=== PATIENT | female | born 1985 | race Asian ===

== ENCOUNTER 2019-12-09 06:34 | Inpatient (IN) | payer OTHER ==
--- OUTSIDE RECORDS SUMMARY | 2019-12-09 06:38 | XMS REPORT | Continuity of Care Document ---
:1985 External Reference #:[id number] Author Name Ultrasounds (transmitted by agent of provider Татьяна Carrera) Address [address] [id number] Care Team Providers Name Role Phone Tacho Gutierrez - Internal Care Team Information Lumber Planer [phone] Medicine Problems Description No Information Available Social History Type Date Description Comments Sex Unknown Cigarette Use Does Not Smoke Cigarettes ETOH Use Denies alcohol use Recreational Drug Use Denies Drug Use Tobacco Use Start: Unknown Patient has never smoked Smoking Status Reviewed: 11/25/19 Patient has never smoked Seat Belt/Car Seat Always uses seat belt Allergies, Adverse Reactions, Alerts Description No Known Drug Allergies Medications Active Medications SIG Qnty Indications Ordering Provider Date + Dha 1 by mouth every 60units Sindhu Barr CNM 05/03/2019 day 27-1&250mg THPK Tylenol 3 tabs every 6 Unknown 325mg Capsules hours as needed pain. mdd 12 tabs History Medications Humulin N Kwikpen inject 4 units 9Syringe Jaxon Marc 10/10/2019 - subcutaneously every JR, DO 11/18/2019 100Unit/ML Supn night BD Pen use with kwikpen. 100units O24.414 Jaxon Marc 10/10/2019 - Needle/Dodie/Ultra JR, DO 11/18/2019 -Fine/32G X 4mm 32G X 4 mm Misc Blood Glucose use in in the morning 1Monitor Daniella 09/26/2019 - Monitoring System before eating, then 2 MD Sabina 11/18/2019 hours after every W/Device Kit meal Blood Glucose Test use for blood glucose 100units Phaelon 09/26/2019 - testing four times MD Sabina 11/18/2019 Strips per day Lancet Device use for blood glucose 100units Phaelon 09/26/2019 - Misc testing four times MD Sabina 11/18/2019 per day Fluconazole 1 tablet then second 2tabs Erianna 06/07/2019 - 150mg tablet 72 hours later KARL Day 09/01/2019 Tablets as needed for continuing symptoms Clotrimazole/Betame apply to affected 15gm Erianna 06/07/2019 - thasone area up to twice per KARL Day 09/01/2019 Dipropionate day for 2-3 days 1-0.05% Cream Medications Administered in Office Medication SIG Qnty Indications Ordering Provider Date PT SCRN Tbco Id as Non User Linda Ceron MD 11/25/2019 Injection PT SCRN Tbco Id as Non User Sindhu Barr CNM 05/03/2019 Injection Immunizations CPT Code Status Date Vaccine Lot # [id number] Given 09/26/2019 Tetnus, Diptheria Toxoids And Acellular Pertussis, DC924 PT > 7Yrs Old [address] Given 06/06/2019 Influenza Virus Vaccine Split Virus Use For [id number] Individual 3Yr Older Vital Signs Date Vital Result Comment 05/03/2019 8:52am BP Systolic 108 mmHg BP Diastolic 64 mmHg Height 63 inches 5'3" Weight 145.00 lb BMI (Body Mass Index) 25.7 kg/m2 Last Menstrual Period 7318337 3 Parity 2 Results Test Acquired Date Facility Test Result H/L Range Note Laboratory test 11/18/2019 [facility] B Strep SEE RESULT 1, 2 [place] [address] Culture BELOW [phone] Screen Laboratory test 09/26/2019 [facility] Glucose 1 HR 203 mg/dL High 70-160 3 [place] [address] Post Prandial [phone] CBC With No 09/26/2019 [facility] White Blood 8.2 Normal 3.5- 10.8 [place] [address] Count 10^3/uL [phone] Red Blood Count 3.75 10^6/uL Normal 3.70-4.87 Hemoglobin 11.2 g/dL Low 12.0-16.0 Hematocrit 33 % Low 35-47 Mean Corpuscular Volume 89 fL Normal 80-97 Mean Corpuscular Hemoglobin 30 pg Normal 27-31 Mean Corpuscular HGB Conc 34 g/dL Normal 31-36 Red Cell Distribution Width 14 % Normal 10-15 Platelet Count 177 10^3/uL Normal 150-450 Mean Platelet Volume 9.6 fL Normal 7.4-10.4 Drug Screen 09/08/2019 [facility] Urine None Detected None [place] [address] Hydrocodone [facility] [phone] Screen Urine Oxycodone Screen None Detected None Detect Urine Fentanyl Screen None Detected None Detect Urine Methadone Screen None Detected None Detect Urine Buprenorphine Screen None Detected None Detect Urine Amphetamine Screen None Detected None Detect Urine Barbiturates Screen None Detected None Detect Urine Benzodiazepine Screen None Detected None Detect Urine Cannabinoids Screen None Detected None Detect Urine Cocaine Screen None Detected None Detect Urine Opiates Screen None Detected None Detect Urine Phencyclidine Screen None Detected None Detect 4 Laboratory test 08/10/2019 [facility] TSH 2.08 mcIU/mL Normal 0.34-5.60 5 [place] [address] [phone] Thyroxine 8.23 g/dL Normal 6.09-12.23 6 1,25 Dihydroxy 08/10/2019 [facility] Calcitriol 147 pg/mL Abnormal 18-78 7 [place] [address] [phone] Afp,Screen 07/04/2019 [facility] [place] [address] Summary risk [phone] Neural Tube Defect Estimate SEE BELOW 8 Collection Date 07/04/19 Maternal Date of 83 Calculated Age At HARVEY 34 years Maternal Weight 145 lbs Insulin Dependent Diabetes No Current Cigarette Smoking Stat non-smoker Patient Race non-Black Number of Fetuses 1 Number of Chorions See Comment 9 Ivf N o Prev Preg w/Neural Tube Defect N o Patient/Father of Baby Has NTD N o Initial Or Repeat Testing Initial testing HARVEY by U/S Scan 12/16/19 Physician Phone Number [phone] GA On Collection by U/S SEE BELOW wk,d 10 GA Used In Risk Estimate Scan estimate Afp 33.1 ng/mL Afp MoM 0.90 MoM <2.50 Interpretation See Comment 11 Additional Comments See Comment 12 Recommended Follow Up None. General Test Information See Comment 13 Laboratory test 07/04/2019 [facility] T4 Free 0.82 ng/dL Normal 0.61-1.12 14 [place] [address] [phone] TSH 2.88 mcIU/mL Normal 0.34-5.60 15 Urine Culture And 06/06/2019 [facility] Urine Culture SEE RESULT 16 [place] [address] BELOW [phone] Laboratory test 06/06/2019 [facility] Gardnerella/Ye SEE RESULT [address] [place] [address] ast: Vaginal BELOW [phone] Dna GC/Chlamydia Dna 06/06/2019 [facility] Chlamydia [place] [address] trachomatis [phone] Zohra Neisseria gonorrhoeae (GC) Zohra Negative Negative Laboratory test 06/06/2019 [facility] Cytology SEE RESULT 18 [place] [address] BELOW [phone] Laboratory test 06/06/2019 [facility] TSH 2.70 mcIU/mL Normal 0.34-5 19 [place] [address] .60 [phone] T4 Free 0.73 ng/dL Normal 0.61-1.12 20 Parvovirus B19 06/06/2019 [facility] Parvovirus Negative Negative Igg [place] [address] (B19) IgG [phone] Antibody Parvovirus (B19) IgM Antibody Negative Negative Parvovirus Interpretation See Comment 21 HIV 1&2 p24 06/06/2019 [facility] HIV 4th Non[place] [address] Generation [phone] Lead 06/06/2019 [facility] Lead,Venous, B < 1.0 g/dL 0.0- 4.9 22 [place] [address] [phone] Venous/Capillary Venous Submitting Laboratory Phone [phone] Type And Screen 06/06/2019 [facility] Patient [place] [address] [phone] Antibody Screen NEGATIVE CBC With No 06/06/2019 [facility] White Blood 9.7 10^3/uL Normal 3.5-10.8 [place] [address] Count [phone] Red Blood Count 4.00 10^6/uL Normal 3.70-4.87 Hemoglobin 11.8 g/dL Low 12.0-16.0 Hematocrit 36 % Normal 35-47 Mean Corpuscular Volume 90 fL Normal 80-97 Mean Corpuscular Hemoglobin 30 pg Normal 27-31 Mean Corpuscular HGB Conc 33 g/dL Normal 31-36 Red Cell Distribution Width 14 % Normal 10-15 Platelet Count 189 10^3/uL Normal 150-450 Mean Platelet Volume 9.9 fL Normal 7.4-10.4 PNL No 06/06/2019 [facility] Rubella Screen Immune Immune 24 [place] [address] [phone] Hemoglobin A1c 5.4 % Normal 4.0-5.6 25 Hepatitis B Surface Ag Nonreactive Nonreactive 26 Syphillis Igg W/Reflex RPR Negative Negative 27 Chromosomes 13, 18, 06/06/2019 [place] Chromosome 13 Negative Normal 28 21 + Sex Chromosome Aneuploidy Chromosome 18 Aneuploidy Negative Normal 29 Chromosome 21 Aneuploidy Negative Normal 30 Sex Chromosome Analysis Female Normal 31 PDF Report SEE IMAGE 1 [id number] SEE RESULT BELOW Name: CAITLYN MACHADO : [address]: Daniella Muhammad MD Acct: [id number] Unit: [id number] AGE: 34 Location: [facility] Re11/18/19 SEX: F Status: REG REF SPEC: [id number] CLAUDIO: 11/18/19-[address]: Daniella Muhammad MD REQ: [id number] RECD: 11/18/19160 STATUS: RES _ SOURCE: SHELBIE/INO/JUSTYN SPDESC: ORDERED: Storm Russell COMMENTS: [id number] QUERIES: Is patient penicillin allergic and/or sensitivities needed? N Procedure Result Reported Site Group B Strep Culture Screen Preliminary 11/19/19- 1048 ML Group B Strep Screen Positive Organism 1 STREP GROUP B Susceptibility testing of penicillins and other B-lactams approved by FDA for treatment of Streptococcus pyogenes (Group A Strep) and Streptococcus agalactiae (Group B Strep) is not necessary for clinical purposes and need not be done routinely, since as with vancomycin, resistant strains have not been recognized. (CLSI R156-F71;p.66) Positive isolates will be saved for one week. Please call the Microbiology Laboratory if further susceptibility testing is needed. * ML - Main Lab . END OF REPORT DEPARTMENT OF PATHOLOGY, [address] [place] [address] Ervin Leon M.D. Director [facility] # [id number] 3 [id number] 4 The specimen was tested at the listed cutoffs: Drug Class Test level (ng/mL) Hydrocodone 300 Oxycodone 100 Fentanyl 1 Methadone 150 Buprenorphine 5 Amphetamines 500 Barbiturates 200 Benzodiazepines 200 Cocaine 150 Cannabinoids 50 Opiates 300 PCP 25 Specimen was received without chain of custody. Results should be used for medical purposes only. 5 [id number] 6 [id number] 7 ADDITIONAL INFORMATION This test was developed and its performance characteristics determined by [facility] in a manner consistent with CLIA requirements. This test has not been cleared or approved by the U.S. Food and Drug Administration. Test Performed by: [facility] - [facility] [address] [place] [address] Housekeeping/Laundry: Ruddy Mejias M.D. Ph.D.; CLIA# [id number] RESULT: 9 RESULT: Not provided by client 10 RESULT: 16,3 11 RESULT: Screen negative for neural tube defects. 12 RESULT: Reviewed by Olive Hernandez,Ph.D. 13 This screening provides an estimation of risk, not a diagnosis. Incorrect or incomplete information may significantly alter results. Results may be unreliable in twin pregnancies with a demise. Results are not available for pregnancies with triplets and higher-order multiples. A positive result occurs when the AFP MoM equals or exceeds 2.5. Screen results and family history influence individual risk. If there is a family history of a neural tube defect, chromosome abnormality, or other inherited condition, consider the option of a genetic consultation. For further information, please contact the maternal screening laboratory at . ADDITIONAL INFORMATION This test was developed and its performance characteristics determined by [facility] in a manner consistent with CLIA requirements. This test has not been cleared or approved by the U.S. Food and Drug Administration. Test Performed by: [facility] - [address] [address] Housekeeping/Laundry: Ruddy Mejias M.D. Ph.D.; CLIA# [id number] 15 [id number] 16 SEE RESULT BELOW Name: MAGDALENAPIPE RUSSELLM : [address]: Arnold Day CNM Acct: [id number] Unit: [id number] AGE: 33 Location: [facility] Re06/06/19 SEX: F Status: REG REF SPEC: [id number] CLAUDIO: 06/06/[address] [facility] [address]: Arnold Day CNM REQ: [id number] RECD: 06/06/192 STATUS: COMP _ SOURCE: URINE SPDESC: ORDERED: Urine Culture COMMENTS: [id number] Urine Source: Random Procedure Result Reported Site Urine Culture Final 06/07/19- 1205 ML No growth of clinically significant organisms * ML - Main Lab . END OF REPORT DEPARTMENT OF PATHOLOGY, [address] [place] [address] Ervin Leon M.D. Director [facility] # [id number] 17 SEE RESULT BELOW Name: CAITLYN MACHADO : [address]: Arnold Day [facility] Acct: [id number] Unit: [id number] AGE: 33 Location: [facility] Re06/06/19 SEX: F Status: REG REF SPEC: [id number] CLAUDIO: 06/06/[address]: Arnold Day [facility] REQ: [id number] RECD: 06/06/19 STATUS: COMP _ SOURCE: VAGINAL SPDESC: ORDERED: Sharon,Yeast DNA COMMENTS: [id number] Would you like to order Trichomonas Vaginalis testing? No Procedure Result Reported Site Gardnerella/Yeast: Vaginal DNA Final 06/07/19- 1236 ML Organism 1 POSITIVE LILIAN Organism 2 Negative Gardnerella The presence of G. vaginalis, although suggestive, is not diagnostic for bacterial vaginosis. Results should be interpreted in conjuction with other clinical and laboratory data available. Women with vaginal discharge should be evaluated for risk factors of cervicitis and pelvic inflammatory disease, toxic shock syndrome (S.aureus), and if present, evaluated for organisms not included in this assay such as N. gonorrhoeae, C. trachomatis, Mobiluncus, Mycoplasma and/or Prevotella. Mixed infections may occur. The performance of this test on patient specimens collected during or immediately after antimicrobial therapy is unknown. The presence or absence of Lilian species, or G. vaginalis cannot be used as a test for therapeutic success or failure. * ML - Main Lab . END OF REPORT DEPARTMENT OF PATHOLOGY, [address] [place] [address] Ervin Leon M.D. Director [facility] # [id number] 18 SEE RESULT BELOW Name: MAGDALENAPIPE RUSSELLM : [address]: Arnold Day CNM Acct: [id number] Unit: [id number] AGE: 33 Location: [facility] Re06/06/19 SEX: F Status: REG REF SPEC: [id number] CLAUDIO: 06/06/[address] [facility] [address]: Arnold Day CNM REQ: [id number] RECD: 06/06/19 STATUS: SOUT _ ORDERED: TP IMAGE ANALYS, HPV/Thin Prep COMMENTS: [id number] FINAL DIAGNOSIS Negative for Intraepithelial lesion or Malignancy HPV RESULTS Date Time Test Result Flag (u) Normal Range 06/06/19 0930 HPV ZOHRA Negative Negative The high-risk HPV types detected by the assay include: 16, 18, 31, 33, 35, 39, 45, 51, 52, 56, 58, 59, 66, and 68. SPECIMEN(S) RECEIVED A. Ectocervical/Endocervical CYTOLOGY ADEQUACY Specimen Adequacy: Satisfactory of evaluation Transformation zone component identified CYTOLOGY PATIENT INFORMATION Patient Information: HPV: High risk HPV RNA testing regardless of pap results. Actual Specimen Date: 06/06/19 Last Menstrual Date: 02/19/19 Spec Date if unknown: unknown ?: Y Post Menopausal?: N Hysterectomy?: N CONTINUED ON NEXT PAGE DEPARTMENT OF PATHOLOGY, [address] [place] [address] Ervin Leon M.D. Director [facility] # [id number] Previous Abnormal Pap Smears?:N Signed by and Reported on: ADRIANNA Cortes (ASCP) 4117 This Pap test was evaluated with the assistance of the ditlop Test Imaging System. Due to cytologic findings at the quality control clerk microscope, comprehensive manual rescreening by a Area Attendant may be required. The Pap Smear is a screening test designed to aid in the detection of premalignant and malignant conditions of the uterine cervix. It is not a diagnostic procedure and should not be used as the sole means of detecting cervical cancer. Both false- positive and false- negative reports do occur. Depending on your risk status, a Pap smear should be obtained and evaluated every 1-3 years. END OF REPORT DEPARTMENT OF PATHOLOGY, [address] [place] [address] Ervin Leon M.D. Director [place] # [id number] 19 [id number] 20 [id number] 21 No antibody to Parvovirus B19 detected. Acute infection cannot be ruled out as antibody levels may be below the limit of detection. If clinically indicated, a second serum should be submitted in 14-21 days. ADDITIONAL INFORMATION This test has been modified from the panel machine setter's instructions. Its performance characteristics were determined by [facility] in a manner consistent with CLIA requirements. This test has not been cleared or approved by the U.S. Food and Drug Administration. Test Performed by: [facility] - [address] [address] Housekeeping/Laundry: Ruddy Mejias M.D. Ph.D.; CLIA# [id number] 22 ADDITIONAL INFORMATION Testing performed by Inductively Coupled Plasma-Mass Spectrometry (ICP-MS). This test was developed and its performance characteristics determined by [facility] in a manner consistent with CLIA requirements. This test has not been cleared or approved by the U.S. Food and Drug Administration. 23 Test Performed by: [facility] [address] [place] [address] Housekeeping/Laundry: Ruddy Mejias M.D. Ph.D.; CLIA# [id number] 24 [id number] 25 Therapeutic target for the treatment of diabetes mellitus patients is <7% HBA1C, and in selective patients <6.0%. Please refer to [place] [employer] diabetic care guidelines for further information. 26 [id number] 27 [id number] 28 No aneuploidy detected. 29 No aneuploidy detected. 30 No aneuploidy detected. 31 Female: No aneuploidy detected. Procedures Date Code Description Status 11/18/2019 72995 Biophysical Profile Without Non Stress Test Completed 11/18/2019 40016 Echography Uterus Follow-Up Or Repeat Completed 10/18/2019 30145 Biophysical Profile Without Non Stress Test Completed 10/18/2019 99422 Echography Uterus Follow-Up Or Repeat Completed 08/10/2019 73520 Echography Uterus Complete Completed 06/06/2019 55361 OB Ultrasound First Trimester Completed Medical Devices Description No Information Available Encounters Type Date Location Provider Dx Diagnosis Office Visit 11/25/2019 [facility] Linda Ceron O24.410 Gestational diabetes 8:30a MD mellitus in , diet controlled Z01.818 Encounter for other preprocedural examination Assessments Date Code Description Provider 11/25/2019 O24.410 Gestational diabetes mellitus in Linda Ceron MD , diet controlled 11/25/2019 Z01.818 Encounter for other preprocedural Linda Ceron MD examination 11/18/2019 O24.410 Gestational diabetes mellitus in Daniella Muhammad MD , diet controlled 11/18/2019 O99.810 Abnormal glucose complicating Daniella Muhammad MD 11/18/2019 O24.410 Gestational diabetes mellitus in Ultrasounds , diet controlled 11/07/2019 O34.211 Maternal care for low transverse scar Jaxon Marc JR, DO from previous delivery 10/25/2019 O24.410 Gestational diabetes mellitus in Sylvia Amin MD , diet controlled 10/18/2019 O99.810 Abnormal glucose complicating Dionicio Amaral M.D. 10/18/2019 O24.410 Gestational diabetes mellitus in Dionicio Amaral M.D. , diet controlled 10/18/2019 O99.810 Abnormal glucose complicating Ultrasounds 10/10/2019 O24.414 Gestational diabetes mellitus in Jaxon Marc , DO , insulin controlled 09/26/2019 Z36.9 Encounter for screening, Linda Ceron MD unspecified 09/26/2019 Z36.9 Encounter for screening, Laboratory unspecified 09/26/2019 Z23 Encounter for immunization Daniella Muhammad MD 09/26/2019 O34.211 Maternal care for low transverse scar Daniella Muhammad MD from previous delivery 09/08/2019 O34.211 Maternal care for low transverse scar Daniella Muhammad MD from previous delivery 08/10/2019 Z36.3 Encounter for screening for Dionicio Amaral M.D. malformations 08/10/2019 Z34.82 Encounter for supervision of other normal Nathalie Terrazas CNM , second trimester 08/10/2019 Z36.3 Encounter for screening for Ultrasounds malformations 07/04/2019 Z36.9 Encounter for screening, Linda Ceron MD unspecified 07/04/2019 Z36.9 Encounter for screening, Laboratory unspecified 07/04/2019 Z34.82 Encounter for supervision of other normal Sindhu Barr CNM , second trimester 06/06/2019 O26.91 related conditions, Linda Ceron MD unspecified, first trimester 06/06/2019 Z23 Encounter for immunization Arnold Day CNM 06/06/2019 Z36.9 Encounter for screening, Arnold Day CNM unspecified 06/06/2019 O26.91 related conditions, Ultrasounds unspecified, first trimester Plan of Treatment Future Appointment(s):01/11/2020 1:30 pm - Linda Ceron MD at [facility]12/16/2019 3:15 pm - Tino Lema CNM at [facility]12/09/2019 7:45 am - [place] C[place] [facility] [place]011/25/2019 - Linda Ceron MDO24.410 Gestational diabetes mellitus in , diet controlledComments:Pt with reasonable control of glucose levels. PT to continue with A!DM management . Pt to have 8 week GTT done at pp visit.Z01.818 Encounter for other preprocedural examinationComments:Pt is aware of risk benefits of repeat section and bilateral tubal ligation Pt accepts riskto include but not limited to infection bleeding damage to internal organs pain scarring need for further surgery, failure of tubal ligation with risk of subsequent ectopic . Consent form personally signed and reviewed together. All questions answered. Functional Status Description No Information Available Mental Status Description No Information Available Referrals Refer to Dr Reason for Referral Status Appt Date [facility] [place] [address] [phone]
--- OUTSIDE RECORDS SUMMARY | 2019-12-09 06:38 | XMS REPORT | Continuity of Care Document ---
:1985 External Reference #:[id number] Author Name Sylvia Amin MD (transmitted by agent of provider Linda Alejandre) Address [address] [place] [address] Care Team Providers Name Role Phone Tacho Gutierrez - Internal Care Team Information Tank Farm Attendant [phone] Medicine Problems Description No Information Available Social [...] hours as needed pain. mdd 12 tabs Cetirizine HCL Unknown Allergy Childrens 5mg/5ML Solution History Medications Humulin N Kwikpen inject 4 units 9Syringe Jaxon Marc 10/10/2019 - subcutaneously every JR, DO 11/18/2019 100Unit/ML Supn night BD Pen use with kwikpen. 100units O24.414 Jaxon Marc 10/10/2019 - Needle/Dodie/Ultra JR, DO 11/18/2019 -Fine/32G X 4mm 32G X 4 mm Misc Blood Glucose use in in the morning 1Monitor Phaelon 09/26/2019 - Monitoring System before eating, then [...] CPT Code Status Date Vaccine Lot # [id number] Given 09/26/2019 Tetnus, Diptheria Toxoids And Acellular Pertussis, DC924 PT > 7Yrs Old [address] Given 06/06/2019 Influenza Virus Vaccine Split Virus Use For [id number] Individual 3Yr Older Vital Signs Date Vital Result Comment 05/03/2019 8:52am BP Systolic 108 mmHg BP Diastolic 64 mmHg Height 63 inches 5'3" Weight 145.00 lb BMI (Body Mass Index) 25.7 kg/m2 Last Menstrual Period 1227676 3 Parity 2 Results Test Acquired Date Facility Test Result H/L Range Note Laboratory test 11/18/2019 [facility] B Strep SEE RESULT 1, 2 [place] [address] Culture BELOW [phone] Screen Laboratory test 09/26/2019 [facility] Glucose 1 HR 203 mg/dL High 70-160 3 [place] [address] Post Prandial [phone] CBC With No 09/26/2019 [facility] White Blood 8.2 Normal 3.5- 10.8 [place] [address] Count 10^3/uL [phone] Red Blood Count 3.75 10^6/uL Normal 3.70-4.87 Hemoglobin 11.2 g/dL Low 12.0-16.0 Hematocrit 33 % Low 35-47 Mean Corpuscular Volume 89 fL Normal 80-97 Mean Corpuscular Hemoglobin 30 pg Normal 27-31 Mean Corpuscular HGB Conc 34 g/dL Normal 31-36 Red Cell Distribution Width 14 % Normal 10-15 Platelet Count 177 10^3/uL Normal 150-450 Mean Platelet Volume 9.6 fL Normal 7.4-10.4 Drug Screen 09/08/2019 [facility] Urine None Detected None [place] [address] Hydrocodone [facility] [phone] Screen Urine Oxycodone Screen None Detected None [...] Detected None Detect 4 Laboratory test 08/10/2019 [facility] TSH 2.08 mcIU/mL Normal 0.34-5.[address] [place] [address] [phone] Thyroxine 8.23 g/dL Normal 6.09-12.23 6 1,25 Dihydroxy 08/10/2019 [facility] Calcitriol 147 pg/mL Abnormal 18-[address] [place] [address] [phone] Afp,Screen 07/04/2019 [facility] [place] [address] Summary risk [phone] Neural Tube Defect Estimate SEE BELOW 8 [...] by U/S Scan 12/16/19 Physician Phone Number [phone] GA On Collection by U/S SEE BELOW wk,d 10 GA Used In Risk Estimate Scan estimate Afp 33.1 ng/mL Afp MoM 0.90 MoM <2.50 Interpretation See Comment 11 Additional Comments See Comment 12 Recommended Follow Up None. General Test Information See Comment 13 Laboratory test 07/04/2019 [facility] T4 Free 0.82 ng/dL Normal 0.61-1.12 14 [place] [address] [phone] TSH 2.88 mcIU/mL Normal 0.34-5.60 15 Urine Culture And 06/06/2019 [facility] Urine Culture SEE RESULT 16 [place] [address] BELOW [phone] Laboratory test 06/06/2019 [facility] Gardnerella/Ye SEE RESULT [address] [place] [address] ast: Vaginal BELOW [phone] Dna GC/Chlamydia Dna 06/06/2019 [facility] Chlamydia Negative [place] [address] trachomatis [phone] Zohra Neisseria gonorrhoeae (GC) Zohra Negative Negative Laboratory test 06/06/2019 [facility] Cytology SEE RESULT 18 [place] [address] BELOW [phone] Laboratory test 06/06/2019 [facility] TSH 2.70 mcIU/mL Normal 0.34-5 19 [place] [address] .60 [phone] T4 Free 0.73 ng/dL Normal 0.61-1.12 20 Parvovirus B19 06/06/2019 [facility] Parvovirus Negative Negative [place] [address] (B19) IgG [phone] Antibody Parvovirus (B19) IgM Antibody Negative Negative Parvovirus Interpretation See Comment 21 HIV 1&2 p24 06/06/2019 [facility] HIV 4th Nonreactive [place] [address] Generation [phone] Lead 06/06/2019 [facility] Lead,Venous, B < 1.0 g/dL 0.0- 4.9 22 [place] [address] [phone] Venous/Capillary Venous Submitting Laboratory Phone [phone] Type And Screen 06/06/2019 [facility] Patient Blood [place] [address] [phone] Antibody Screen NEGATIVE CBC With No 06/06/2019 [facility] White Blood 9.7 10^3/uL Normal 3.5-10.8 [place] [address] Count [phone] Red Blood Count 4.00 10^6/uL Normal 3.70-4.87 Hemoglobin 11.8 g/dL Low 12.0-16.0 Hematocrit 36 % Normal 35-47 Mean Corpuscular Volume 90 fL Normal 80-97 Mean Corpuscular Hemoglobin 30 pg Normal 27-31 Mean Corpuscular HGB Conc 33 g/dL Normal 31-36 Red Cell Distribution Width 14 % Normal 10-15 Platelet Count 189 10^3/uL Normal 150-450 Mean Platelet Volume 9.9 fL Normal 7.4-10.4 PNL No 06/06/2019 [facility] Rubella Screen Immune Immune 24 [place] [address] [phone] Hemoglobin A1c 5.4 % Normal 4.0-5.6 25 Hepatitis B Surface Ag Nonreactive Nonreactive 26 Syphillis Igg W/Reflex RPR Negative Negative 27 Chromosomes 13, 18, 06/06/2019 Myla Chromosome 13 Negative Normal 28 21 + Sex Chromosome Aneuploidy Chromosome 18 Aneuploidy Negative Normal 29 Chromosome 21 Aneuploidy Negative Normal 30 Sex Chromosome Analysis Female Normal 31 PDF Report SEE IMAGE 1 [id number] 2 SEE RESULT BELOW Name: CAITLYN MACHADO : [address]: Daniella Muhammad MD Acct: [id number] Unit: [id number] AGE: 34 Location: [facility] Re11/18/19 SEX: F Status: REG REF SPEC: [id number] CLAUDIO: 11/18/19-1137 [facility] DR: Daniella Muhammad MD REQ: [id number] RECD: 11/18/19160 STATUS: RES _ SOURCE: SHELBIE/VAG/RE SPDESC: ORDERED: Storm Russell COMMENTS: [id number] QUERIES: Is patient penicillin allergic and/or sensitivities [...] resistant strains have not been recognized. (CLSI K356-K39;p.66) Positive isolates will be saved for one week. Please call the Microbiology Laboratory if further susceptibility testing is needed. * ML - Main Lab . END OF REPORT DEPARTMENT OF PATHOLOGY, [address] [place] [address] Ervin Leon M.D. Director SUE # [id number] 3 [id number] 4 The specimen was tested at the listed cutoffs: Drug Class Test level (ng/mL) Hydrocodone 300 Oxycodone 100 Fentanyl 1 Methadone 150 Buprenorphine 5 Amphetamines 500 Barbiturates 200 Benzodiazepines 200 Cocaine 150 Cannabinoids 50 Opiates 300 PCP 25 Specimen was received without chain of custody. Results should be used for medical purposes only. 5 [id number] 6 [id number] 7 ADDITIONAL INFORMATION This test was developed and its performance characteristics determined by [facility] in a manner consistent with CLIA requirements. This test has not been cleared or approved by the U.S. Food and Drug Administration. Test Performed by: [facility] [address] [place] [address] Armament Installer: Ruddy Mejias M.D. Ph.D.; CLIA# [id number] RESULT: 9 RESULT: Not provided by [...] developed and its performance characteristics determined by [facility] in a manner consistent with CLIA requirements. This test has not been cleared or approved by the U.S. Food and Drug Administration. Test Performed by: [facility] [place] [address] Armament Installer: Ruddy Mejias M.D. Ph.D.; CLIA# [id number] 14 [id number] 15 [id number] 16 SEE RESULT BELOW Name: CAITLYN MACAHDO : [address]: Arnold Day [facility] Acct: [id number] Unit: [id number] AGE: 33 Location: [facility] Re06/06/19 SEX: F Status: REG REF SPEC: [id number] CLAUDIO: 06/06/19 [facility] DR: Arnold Day [facility] REQ: [id number] RECD: 06/06/19 STATUS: COMP _ SOURCE: URINE SPDESC: ORDERED: Urine Culture COMMENTS: [id number] Urine Source: Random Procedure Result Reported Site Urine Culture Final 06/07/19- 1205 ML No growth of clinically significant organisms * ML - Main Lab . END OF REPORT DEPARTMENT OF PATHOLOGY, [address] [place] [address] Ervin Leon M.D. Director MADISYN # [id number] 17 SEE RESULT BELOW Name: CAITLYN MACHADO : [address]: Arnold Day [facility] Acct: [id number] Unit: [id number] AGE: 33 Location: [facility] Re06/06/19 SEX: F Status: REG REF SPEC: [id number] CLAUDIO: 06/06/[address]: Arnold MENDOZA REQ: [id number] RECD: 06/06/19 STATUS: COMP _ SOURCE: VAGINAL SPDESC: ORDERED: Sharon,Yeast DNA COMMENTS: [id number] Would you like to order Trichomonas Vaginalis [...] . END OF REPORT DEPARTMENT OF PATHOLOGY, [address] [place] [address] Ervin Leon M.D. Director [facility] # [id number] 18 SEE RESULT BELOW Name: CAITLYN MACHADO : [address]: Arnold Day CNM Acct: [id number] Unit: [id number] AGE: 33 Location: [facility] Re06/06/19 SEX: F Status: REG REF SPEC: [id number] CLAUDIO: 06/06/19 [facility] DR: Arnold Day CNM REQ: [id number] RECD: 06/06/19 STATUS: SOUT _ ORDERED: TP IMAGE ANALYS, HPV/Thin Prep COMMENTS: [id number] FINAL DIAGNOSIS Negative for Intraepithelial lesion or [...] CONTINUED ON NEXT PAGE DEPARTMENT OF PATHOLOGY, [address] [place] [address] Ervin Leon M.D. Director [facility] # [id number] Previous Abnormal Pap Smears?:N Signed by and Reported on: ADRIANNA Cortes (ASCP) 0080 This Pap test was evaluated with the assistance of the [employer].comPrep Test Imaging System. Due to cytologic findings at the laboratory apparatus glass grinder microscope, comprehensive manual rescreening by a Corporate Webmaster may be required. The Pap Smear is [...] years. END OF REPORT DEPARTMENT OF PATHOLOGY, [address] [place] [address] Ervin Leon M.D. Director [facility] # [id number] 19 [id number] 20 [id number] 21 No antibody to Parvovirus B19 detected. Acute infection cannot be ruled out as antibody levels may be below the limit of detection. If clinically indicated, a second serum should be submitted in 14-21 days. ADDITIONAL INFORMATION This test has been modified from the retail reset merchandiser's instructions. Its performance characteristics were determined by [facility] in a manner consistent with CLIA requirements. This test has not been cleared or approved by the U.S. Food and Drug Administration. Test Performed by: [facility] [employer] [facility] [address] [place] [address] Armament Installer: Ruddy Mejias M.D. Ph.D.; CLIA# [id number] 22 ADDITIONAL INFORMATION Testing performed by Inductively Coupled Plasma-Mass Spectrometry (ICP-MS). This test was developed and its performance characteristics determined by [facility] in a manner consistent with CLIA requirements. This test has not been cleared or approved by the U.S. Food and Drug Administration. 23 Test Performed by: [facility] [address], [place] [address] Armament Installer: Ruddy Mejias M.D. Ph.D.; CLIA# [id number] 24 [id number] 25 Therapeutic target for the treatment of diabetes mellitus patients is <7% HBA1C, and in selective patients <6.0%. Please refer to [place] [employer] diabetic care guidelines for further information. 26 [id number] 27 [id number] 28 No aneuploidy detected. 29 No aneuploidy detected. 30 No aneuploidy detected. 31 Female: No aneuploidy detected. Procedures Date Code Description Status 11/18/2019 85616 Biophysical Profile Without Non Stress Test Completed 11/18/2019 83103 Echography Uterus Follow-Up Or Repeat Completed 10/18/2019 90650 Biophysical Profile Without Non Stress Test Completed 10/18/2019 20437 Echography Uterus Follow-Up Or Repeat Completed 08/10/2019 09681 Echography Uterus Complete Completed 06/06/2019 23507 OB Ultrasound First Trimester Completed Medical Devices Description No Information Available Encounters Type Date Location Provider Dx Diagnosis Office Visit 11/25/2019 [facility] Linda Ceron, O24.410 Gestational diabetes 8:30a mellitus in , diet controlled Z01.818 Encounter for other preprocedural examination Assessments Date Code Description Provider 12/02/2019 O24.410 Gestational diabetes mellitus in Sylvia Amin MD , diet controlled 11/25/2019 O24.410 Gestational diabetes mellitus in Linda [...] O24.414 Gestational diabetes mellitus in Jaxon Marc JR, DO , insulin controlled 09/26/2019 Z36.9 Encounter [...] Z34.82 Encounter for supervision of other normal KELLY Resendiz , second trimester 08/10/2019 Z36.3 Encounter for [...] 1:30 pm - Linda Ceron MD at [facility]12/16/2019 3:15 pm - Tino Lema CNM at [facility]12/09/2019 7:45 am - Linda Ceron MD at [place] 4439011/25/2019 - Linda Ceron MDO24.410 Gestational diabetes mellitus [...] Description No Information Available Referrals Refer to Reason for Referral Status Appt Date [facility] GDM Closed [facility] [address] [facility] [place] [address] [phone]
--- OUTSIDE RECORDS SUMMARY | 2019-12-09 06:38 | XMS REPORT | Continuity of Care Document ---
:1985 External Reference #:[id number] Author Name Daniella Muhammad MD (transmitted by agent of provider Linda Alejandre) Address [address] [place] [address] Care Team Providers Name Role Phone Tacho Gutierrez - Internal Care Team Information Cable Rigger [phone] Medicine Problems Description No Information Available Social [...] every 60units Sindhu Barr CNM 05/03/2019 day -1&250mg THPK Tylenol 3 tabs every 6 Unknown [...] Glucose Test use for blood glucose 100units Daniella 09/26/2019 - testing four times MD Sabina [...] CPT Code Status Date Vaccine Lot # [id number] Given 09/26/2019 Tetnus, Diptheria Toxoids And Acellular Pertussis, DC924 PT > 7Yrs Old [address] Given 06/06/2019 Influenza Virus Vaccine Split Virus Use For 905511 Individual 3Yr Older Vital Signs Date Vital Result Comment 05/03/2019 8:52am BP Systolic 108 mmHg BP Diastolic 64 mmHg Height 63 inches 5'3" Weight 145.00 lb BMI (Body Mass Index) 25.7 kg/m2 Last Menstrual Period 4438537 3 Parity 2 Results Test Acquired Date Facility Test Result H/L Range Note Laboratory test 11/18/2019 [facility] B Strep SEE RESULT 1, 2 [place] [address] Culture BELOW [phone] Screen Laboratory test 09/26/2019 [facility] Glucose 1 HR 203 mg/dL High 70-160 3 [place] [address] Post Prandial [phone] CBC With No 09/26/2019 [facility] White Blood 8.2 Normal 3.5- 10.8 [place] [address] Count 10^3/uL [phone] Red Blood Count 3.75 10^6/uL Normal 3.70-4.87 Hemoglobin 11.2 g/dL Low 12.0-16.0 Hematocrit 33 % Low 35-47 Mean Corpuscular Volume 89 fL Normal 80-97 Mean Corpuscular Hemoglobin 30 pg Normal 27-31 Mean Corpuscular HGB Conc 34 g/dL Normal 31-36 Red Cell Distribution Width 14 % Normal 10-15 Platelet Count 177 10^3/uL Normal 150-450 Mean Platelet Volume 9.6 fL Normal 7.4-10.4 Drug Screen 09/08/2019 [facility] Urine None Detected None [place] [address] Hydro[facility] Clinic [phone] Screen Urine Oxycodone Screen None Detected None [...] Detected None Detect 4 Laboratory test 08/10/2019 [facility] TSH 2.08 mcIU/mL Normal 0.34-5.60 5 [place] [address] [phone] Thyroxine 8.23 g/dL Normal 6.09-12.23 6 1,25 Dihydroxy 08/10/2019 [facility] Calcitriol 147 pg/mL Abnormal 18-78 7 [place] [address] [phone] Afp,Screen 07/04/2019 [facility] [place] [address] Summary risk [phone] Neural Tube Defect Estimate SEE BELOW 8 [...] by U/S Scan 12/16/19 Physician Phone Number [phone] GA On Collection by U/S SEE BELOW wk,d 10 GA Used In Risk Estimate Scan estimate Afp 33.1 ng/mL Afp MoM 0.90 MoM <2.50 Interpretation See Comment 11 Additional Comments See Comment 12 Recommended Follow Up None. General Test Information See Comment 13 Laboratory test 07/04/2019 [facility] T4 Free 0.82 ng/dL Normal 0.61-1.12 [address] [place] [address] [phone] TSH 2.88 mcIU/mL Normal 0.34-5.60 15 Urine Culture And 06/06/2019 [facility] Urine Culture SEE RESULT [address] [place] [address] BELOW [phone] Laboratory test 06/06/2019 [facility] Gardnerella/Ye SEE RESULT [address] [place] [address] ast: Vaginal BELOW [phone] Dna GC/Chlamydia Dna 06/06/2019 [facility] Chlamydia [place] [address] trachomatis [phone] Zohra Neisseria gonorrhoeae (GC) Zohra Negative Negative Laboratory test 06/06/2019 [facility] Cytology SEE RESULT [address] [place] [address] BELOW [phone] Laboratory test 06/06/2019 [facility] TSH 2.70 mcIU/mL Normal 0.34-5 19 [place] [address] .60 [phone] T4 Free 0.73 ng/dL Normal 0.61-1.12 20 Parvovirus B19 06/06/2019 [facility] Parvovirus Negative Negative [place] [address] (B19) IgG [phone] Antibody Parvovirus (B19) IgM Antibody Negative Negative Parvovirus Interpretation See Comment 21 HIV 1&2 p24 06/06/2019 [facility] HIV 4th [place] [address] Generation [phone] Lead 06/06/2019 [facility] Lead,Venous, B < 1.0 g/dL 0.0- 4.9 [address] [place] [address] [phone] Venous/Capillary Venous Submitting Laboratory Phone [phone] Type And Screen 06/06/2019 [facility] Patient [place] [address] [phone] Antibody Screen NEGATIVE CBC With No 06/06/2019 [facility] White Blood 9.7 10^3/uL Normal 3.5-10.8 [place] [address] Count [phone] Red Blood Count 4.00 10^6/uL Normal 3.70-4.87 Hemoglobin 11.8 g/dL Low 12.0-16.0 Hematocrit 36 % Normal 35-47 Mean Corpuscular Volume 90 fL Normal 80-97 Mean Corpuscular Hemoglobin 30 pg Normal 27-31 Mean Corpuscular HGB Conc 33 g/dL Normal 31-36 Red Cell Distribution Width 14 % Normal 10-15 Platelet Count 189 10^3/uL Normal 150-450 Mean Platelet Volume 9.9 fL Normal 7.4-10.4 PNL No 06/06/2019 [facility] Rubella Screen Immune Immune 24 [place] [address] [phone] Hemoglobin A1c 5.4 % Normal 4.0-5.6 25 Hepatitis B Surface Ag Nonreactive Nonreactive 26 Syphillis Igg W/Reflex RPR Negative Negative 27 Chromosomes 13, 18, 06/06/2019 [facility] Chromosome 13 Negative Normal 28 21 + Sex Chromosome Aneuploidy Chromosome 18 Aneuploidy Negative Normal 29 Chromosome 21 Aneuploidy Negative Normal 30 Sex Chromosome Analysis Female Normal 31 PDF Report SEE IMAGE 1 [id number] 2 SEE RESULT BELOW Name: CAITLYN MACHADO : [address]: Daniella Muhammad MD Acct: [id number] Unit: [id number] AGE: 34 Location: [facility] Re11/18/19 SEX: F Status: REG REF SPEC: [id number] CLAUDIO: 11/18/19-[address] [facility] [address]: Daniella Muhammad MD REQ: [id number] RECD: 11/18/19160 STATUS: RES _ SOURCE: SHELBIE/INO/RE SPDESC: ORDERED: Storm Russell COMMENTS: [id number] QUERIES: Is patient penicillin allergic and/or sensitivities [...] resistant strains have not been recognized. (CLSI P927-U96;p.66) Positive isolates will be saved for one week. Please call the Microbiology Laboratory if further susceptibility testing is needed. * ML - Main Lab . END OF REPORT DEPARTMENT OF PATHOLOGY, [address] [place] [address] Ervin Leon M.D. Director [facility] # [id number] 3 [id number] 4 The specimen was tested at the listed cutoffs: Drug Class Test level (ng/mL) Hydrocodone 300 Oxycodone 100 Fentanyl 1 Methadone 150 Buprenorphine 5 Amphetamines 500 Barbiturates 200 Benzodiazepines 200 Cocaine 150 Cannabinoids 50 Opiates 300 PCP 25 Specimen was received without chain of custody. Results should be used for medical purposes only. 5 [id number] 6 [id number] 7 ADDITIONAL INFORMATION This test was developed and its performance characteristics determined by [facility] in a manner consistent with CLIA requirements. This test has not been cleared or approved by the U.S. Food and Drug Administration. Test Performed by: [facility] [address] [place] [address] Sawmill Hand: Ruddy Mejias M.D. Ph.D.; CLIA# [id number] 8 RESULT: 9 RESULT: Not provided by [...] developed and its performance characteristics determined by [facility] in a manner consistent with CLIA requirements. This test has not been cleared or approved by the U.S. Food and Drug Administration. Test Performed by: [facility] [address] [place] [address] Sawmill Hand: Ruddy Mejias M.D. Ph.D.; CLIA# [id number] 14 [id number] 15 [id number] 16 SEE RESULT BELOW Name: CAITLYN MACHADO : [address]: Arnold Day CNM Acct: [id number] Unit: [id number] AGE: 33 Location: [facility] Re06/06/19 SEX: F Status: REG REF SPEC: [id number] CLAUDIO: 06/06/[address]: Arnold Day CNM REQ: [id number] RECD: 06/06/19 STATUS: COMP _ SOURCE: URINE [facility]: ORDERED: Urine Culture COMMENTS: [id number] Urine Source: Random Procedure Result Reported Site Urine Culture Final 06/07/19- 1205 ML No growth of clinically significant organisms * ML - Main Lab . END OF REPORT DEPARTMENT OF PATHOLOGY, [address] [place] [address] Ervin Leon M.D. Director [facility] # [id number] 17 SEE RESULT BELOW Name: CAITLYN MACHADO : [address]: Arnold Day [facility] Acct: [id number] Unit: [id number] AGE: 33 Location: [facility] Re06/06/19 SEX: F Status: REG REF SPEC: [id number] CLAUDIO: 06/06/[address]: Arnold Day [facility] REQ: [id number] RECD: 06/06/19 STATUS: COMP _ SOURCE: VAGINAL SPDESC: ORDERED: Sharon,Yeast DNA COMMENTS: [id number] Would you like to order Trichomonas Vaginalis [...] . END OF REPORT DEPARTMENT OF PATHOLOGY, [address] [place] [address] Ervin Leon M.D. Director [facility] # [id number] 18 SEE RESULT BELOW Name: CARTERCAITLYN : [address]: Arnold Day CNM Acct: [id number] Unit: [id number] AGE: 33 Location: [facility] Re06/06/19 SEX: F Status: REG REF SPEC: [id number] CLAUDIO: 06/06/[address] [facility] [address]: Arnold Day CNM REQ: [id number] RECD: 06/06/19 STATUS: SOUT _ ORDERED: TP IMAGE ANALYS, HPV/Thin Prep COMMENTS: [id number] FINAL DIAGNOSIS Negative for Intraepithelial lesion or [...] CONTINUED ON NEXT PAGE DEPARTMENT OF PATHOLOGY, [address] [place] [address] Ervin Leon M.D. Director [facility] # [id number] Previous Abnormal Pap Smears?:N Signed by and Reported on: ADRIANNA Cortes (ASCP) 4467 This Pap test was evaluated with the assistance of the BeibambooPrep Test Imaging System. Due to cytologic findings at the cafeteria server microscope, comprehensive manual rescreening by a Tractor Trailer Operator may be required. The Pap Smear is [...] years. END OF REPORT DEPARTMENT OF PATHOLOGY, [address] [place] [address] Ervin Leon M.D. Director [place] # [id number] 19 [id number] 20 [id number] 21 No antibody to Parvovirus B19 detected. Acute infection cannot be ruled out as antibody levels may be below the limit of detection. If clinically indicated, a second serum should be submitted in 14-21 days. ADDITIONAL INFORMATION This test has been modified from the dressing room attendant's instructions. Its performance characteristics were determined by [facility] in a manner consistent with CLIA requirements. This test has not been cleared or approved by the U.S. Food and Drug Administration. Test Performed by: [facility] - [address] [address] Sawmill Hand: Ruddy Mejias M.D. Ph.D.; CLIA# [id number] 22 ADDITIONAL INFORMATION Testing performed by Inductively Coupled Plasma-Mass Spectrometry (ICP-MS). This test was developed and its performance characteristics determined by [facility] in a manner consistent with CLIA requirements. This test has not been cleared or approved by the U.S. Food and Drug Administration. 23 Test Performed by: [facility] [address] [place] [address] Sawmill Hand: Ruddy Mejias M.D. Ph.D.; CLIA# [id number] 24 [id number] 25 Therapeutic target for the treatment of diabetes mellitus patients is <7% HBA1C, and in selective patients <6.0%. Please refer to [place] [employer] diabetic care guidelines for further information. 26 [id number] 27 [id number] 28 No aneuploidy detected. 29 No aneuploidy detected. 30 No aneuploidy detected. 31 Female: No aneuploidy detected. Procedures Date Code Description Status 11/18/2019 28440 Biophysical Profile Without Non Stress Test Completed 11/18/2019 24702 Echography Uterus Follow-Up Or Repeat Completed 10/18/2019 80749 Biophysical Profile Without Non Stress Test Completed 10/18/2019 39380 Echography Uterus Follow-Up Or Repeat Completed 08/10/2019 75909 Echography Uterus Complete Completed 06/06/2019 51575 OB Ultrasound First Trimester Completed Medical Devices Description No Information Available Encounters Type Date Location Provider Dx Diagnosis Office Visit 11/25/2019 [facility] Office Linda Ceron, O24.410 Gestational diabetes 8:30a MD mellitus in [...] 1:30 pm - Linda Ceron MD at [facility]12/16/2019 3:15 pm - Tino Lema CNM at [facility]12/09/2019 7:45 am - [place] [facility]011/25/2019 - Linda Ceron MDO24.410 Gestational [...] to Reason for Referral Status Appt Date [facility]DM Closed [facility] [address] [facility] [place] [address] [phone]
--- OUTSIDE RECORDS SUMMARY | 2019-12-09 06:38 | XMS REPORT | Continuity of Care Document ---
:1985 External Reference #:[id number] Author Name Linda Ceron MD (transmitted by agent of provider Linda Alejandre) Address [address] [place] [address] Care Team Providers Name Role Phone Tacho Gutierrez - Internal Care Team Information Lurer [phone] Medicine Problems Description No Information Available Social [...] CPT Code Status Date Vaccine Lot # 25562 Given 09/26/2019 Tetnus, Diptheria Toxoids And Acellular Pertussis, DC924 PT > 7Yrs Old [address] Given 06/06/2019 Influenza Virus Vaccine Split Virus Use For [id number] Individual 3Yr Older Vital Signs Date Vital Result Comment 05/03/2019 8:52am BP Systolic 108 mmHg BP Diastolic 64 mmHg Height 63 inches 5'3" Weight 145.00 lb BMI (Body Mass Index) 25.7 kg/m2 Last Menstrual Period 7475266 3 Parity 2 Results Test Acquired Date Facility Test Result H/L Range Note Laboratory test 11/18/2019 [facility] B Strep SEE RESULT 1, 2 [place] [address] Culture BELOW [phone] Screen Laboratory test 09/26/2019 [facility] Glucose 1 HR 203 mg/dL High 70-160 3 [place] [address] Post Prandial [phone] CBC With No 09/26/2019 [facility] White Blood 8.2 Normal 3.5- 10.8 [place] [address] Count 10^3/uL [phone] Red Blood Count 3.75 10^6/uL Normal 3.70-4.87 Hemoglobin 11.2 g/dL Low 12.0-16.0 Hematocrit 33 % Low 35-47 Mean Corpuscular Volume 89 fL Normal 80-97 Mean Corpuscular Hemoglobin 30 pg Normal 27-31 Mean Corpuscular HGB Conc 34 g/dL Normal 31-36 Red Cell Distribution Width 14 % Normal 10-15 Platelet Count 177 10^3/uL Normal 150-450 Mean Platelet Volume 9.6 fL Normal 7.4-10.4 Drug Screen 09/08/2019 [facility] Urine None Detected [place] [address] Hydrocodone [facility] [phone] Screen Urine Oxycodone Screen None Detected None [...] Detected None Detect 4 Laboratory test 08/10/2019 [facility] TSH 2.08 mcIU/mL Normal 0.34-5.60 5 [place] [address] [phone] Thyroxine 8.23 g/dL Normal 6.09-12.23 6 1,25 Dihydroxy 08/10/2019 [facility] Calcitriol 147 pg/mL Abnormal 18-78 7 [place] [address] [phone] Afp,Screen 07/04/2019 [facility] [place] [address] Summary risk [phone] Neural Tube Defect Estimate SEE BELOW 8 [...] by U/S Scan 12/16/19 Physician Phone Number [phone] GA On Collection by U/S SEE BELOW wk,d 10 GA Used In Risk Estimate Scan estimate Afp 33.1 ng/mL Afp MoM 0.90 MoM <2.50 Interpretation See Comment 11 Additional Comments See Comment 12 Recommended Follow Up None. General Test Information See Comment 13 Laboratory test 07/04/2019 [facility] T4 Free 0.82 ng/dL Normal 0.61-1.12 14 [place] [address] [phone] TSH 2.88 mcIU/mL Normal 0.34-5.60 15 Urine Culture And 06/06/2019 [facility] Urine Culture SEE RESULT 16 [place]ensit[place] [address] BELOW [phone] Laboratory test 06/06/2019 [facility] Gardnerella/Ye SEE RESULT [address] [place] [address] ast: Vaginal BELOW [phone] Dna GC/Chlamydia Dna 06/06/2019 [facility] Chlamydia [place] [address] trachomatis [phone] Zohra Neisseria gonorrhoeae (GC) Zohra Negative Negative Laboratory test 06/06/2019 [facility] Cytology SEE RESULT [address] [place] [address] BELOW [phone] Laboratory test 06/06/2019 [facility] TSH 2.70 mcIU/mL Normal 0.34-5 19 [place] [address] .60 [phone] T4 Free 0.73 ng/dL Normal 0.61-1.12 20 Parvovirus B19 06/06/2019 [facility] Parvovirus Negative Negative [place] [address] (B19) IgG [phone] Antibody Parvovirus (B19) IgM Antibody Negative Negative Parvovirus Interpretation See Comment 21 HIV 1&2 p24 06/06/2019 [facility] HIV 4th [place] [address] Generation [phone] Lead 06/06/2019 [facility] Lead,Venous, B < 1.0 g/dL 0.0- 4.9 22 [place] [address] [phone] Venous/Capillary Venous Submitting Laboratory Phone [phone] Type And Screen 06/06/2019 [facility] Patient [place] [address] [phone] Antibody Screen NEGATIVE CBC With No 06/06/2019 [facility] White Blood 9.7 10^3/uL Normal 3.5-10.8 [place] [address] Count [phone] Red Blood Count 4.00 10^6/uL Normal 3.70-4.87 Hemoglobin 11.8 g/dL Low 12.0-16.0 Hematocrit 36 % Normal 35-47 Mean Corpuscular Volume 90 fL Normal 80-97 Mean Corpuscular Hemoglobin 30 pg Normal 27-31 Mean Corpuscular HGB Conc 33 g/dL Normal 31-36 Red Cell Distribution Width 14 % Normal 10-15 Platelet Count 189 10^3/uL Normal 150-450 Mean Platelet Volume 9.9 fL Normal 7.4-10.4 PNL No 06/06/2019 [facility] Rubella Screen Immune Immune 24 [place] [address] [phone] Hemoglobin A1c 5.4 % Normal 4.0-5.6 25 Hepatitis B Surface Ag Nonreactive Nonreactive 26 Syphillis Igg W/Reflex RPR Negative Negative 27 Chromosomes 13, 18, 06/06/2019 [facility] Chromosome 13 Negative Normal 28 21 + Sex Chromosome Aneuploidy Chromosome 18 Aneuploidy Negative Normal 29 Chromosome 21 Aneuploidy Negative Normal 30 Sex Chromosome Analysis Female Normal 31 PDF Report SEE IMAGE 1 [id number] 2 SEE RESULT BELOW Name: CAITLYN MACHADO : [address]: Daniella Muhammad MD Acct: [id number] Unit: [id number] AGE: 34 Location: [facility] Re11/18/19 SEX: F Status: REG REF SPEC: [id number] CLAUDIO: 11/18/19-[address] [facility] [address]: Daniella Muhammad MD REQ: [id number] RECD: 11/18/19160 STATUS: RES _ SOURCE: SHELBIE/INO/RE SPDESC: ORDERED: Storm Russell COMMENTS: [id number] QUERIES: Is patient penicillin allergic and/or sensitivities [...] resistant strains have not been recognized. (CLSI T670-Y79;p.66) Positive isolates will be saved for one week. Please call the Microbiology Laboratory if further susceptibility testing is needed. * ML - Main Lab . END OF REPORT DEPARTMENT OF PATHOLOGY, [address] [place] [address] Ervin Leon M.D. Director [facility] # [id number] 3 [id number] 4 The specimen was tested at the listed cutoffs: Drug Class Test level (ng/mL) Hydrocodone 300 Oxycodone 100 Fentanyl 1 Methadone 150 Buprenorphine 5 Amphetamines 500 Barbiturates 200 Benzodiazepines 200 Cocaine 150 Cannabinoids 50 Opiates 300 PCP 25 Specimen was received without chain of custody. Results should be used for medical purposes only. 5 [id number] 6 [id number] 7 ADDITIONAL INFORMATION This test was developed and its performance characteristics determined by [facility] in a manner consistent with CLIA requirements. This test has not been cleared or approved by the U.S. Food and Drug Administration. Test Performed by: [facility] [address] [place] [address] Manager Market Development: Ruddy Mejias M.D. Ph.D.; CLIA# [id number] RESULT: 9 RESULT: Not provided by [...] developed and its performance characteristics determined by [facility] in a manner consistent with CLIA requirements. This test has not been cleared or approved by the U.S. Food and Drug Administration. Test Performed by: [facility] [address] [place] [address] Manager Market Development: Ruddy Mejias M.D. Ph.D.; CLIA# [id number] 15 [id number] 16 SEE RESULT BELOW Name: CAITLYN MACHADO : [address]: Arnold Day CNM Acct: [id number] Unit: [id number] AGE: 33 Location: [facility] Re06/06/19 SEX: F Status: REG REF SPEC: [id number] CLAUDIO: 06/06/19 PAOLA JOSEPH: Arnold MENDOZAM REQ: [id number] RECD: 06/06/19 STATUS: COMP _ SOURCE: URINE SPDESC: ORDERED: Urine Culture COMMENTS: [id number] Urine Source: Random Procedure Result Reported Site Urine Culture Final 06/07/19- 1205 ML No growth of clinically significant organisms * ML - Main Lab . END OF REPORT DEPARTMENT OF PATHOLOGY, [address] [place] [address] Ervin Leon M.D. Director [facility] # [id number] 17 SEE RESULT BELOW Name: CAITLYN MACHADO : [address]: Arnold Day [facility] Acct: [id number] Unit: [id number] AGE: 33 Location: [facility] Re06/06/19 SEX: F Status: REG REF SPEC: [id number] CLAUDIO: 06/06/[address]: Arnold Day [facility] REQ: [id number] RECD: 06/06/19 STATUS: COMP _ SOURCE: VAGINAL SPDESC: ORDERED: Sharon,Yeast DNA COMMENTS: [id number] Would you like to order Trichomonas Vaginalis [...] . END OF REPORT DEPARTMENT OF PATHOLOGY, [address] [place] [address] Ervin Leon M.D. Director [facility] # [id number] 18 SEE RESULT BELOW Name: CARTERJODIECAITLYN : [address]: Arnold Day CNM Acct: [id number] Unit: [id number] AGE: 33 Location: [facility] Re06/06/19 SEX: F Status: REG REF SPEC: [id number] CLAUDIO: 06/06/[address] [facility] [address]: Arnold Day CNM REQ: [id number] RECD: 06/06/19 STATUS: SOUT _ ORDERED: TP IMAGE ANALYS, HPV/Thin Prep COMMENTS: [id number] FINAL DIAGNOSIS Negative for Intraepithelial lesion or [...] CONTINUED ON NEXT PAGE DEPARTMENT OF PATHOLOGY, [address] [place] [address] Ervin Leon M.D. Director [facility] # [id number] Previous Abnormal Pap Smears?:N Signed by and Reported on: ADRIANNA Cortes (ASCP) 2406 This Pap test was evaluated with the assistance of the BarBirdPrep Test Imaging System. Due to cytologic findings at the dermatology physician microscope, comprehensive manual rescreening by a Youth Director may be required. The Pap Smear is [...] years. END OF REPORT DEPARTMENT OF PATHOLOGY, [address] [place] [address] Ervin Leon M.D. Director [facility] # [id number] 19 [id number] 20 [id number] 21 No antibody to Parvovirus B19 detected. Acute infection cannot be ruled out as antibody levels may be below the limit of detection. If clinically indicated, a second serum should be submitted in 14-21 days. ADDITIONAL INFORMATION This test has been modified from the primer inserting machine adjuster's instructions. Its performance characteristics were determined by [facility] in a manner consistent with CLIA requirements. This test has not been cleared or approved by the U.S. Food and Drug Administration. Test Performed by: [facility] [address] [place] [address] Manager Market Development: Ruddy Mejias M.D. Ph.D.; CLIA# [id number] 22 ADDITIONAL INFORMATION Testing performed by Inductively Coupled Plasma-Mass Spectrometry (ICP-MS). This test was developed and its performance characteristics determined by [facility] in a manner consistent with CLIA requirements. This test has not been cleared or approved by the U.S. Food and Drug Administration. 23 Test Performed by: [facility] [address] [place] [address] Manager Market Development: Ruddy Mejias M.D. Ph.D.; CLIA# [id number] 25 Therapeutic target for the treatment of diabetes mellitus patients is <7% HBA1C, and in selective patients <6.0%. Please refer to [place] [employer] diabetic care guidelines for further information. 26 [id number] 27 [id number] 28 No aneuploidy detected. 29 No aneuploidy detected. 30 No aneuploidy detected. 31 Female: No aneuploidy detected. Procedures Date Code Description Status 11/18/2019 86741 Biophysical Profile Without Non Stress Test Completed 11/18/2019 69471 Echography Uterus Follow-Up Or Repeat Completed 10/18/2019 74432 Biophysical Profile Without Non Stress Test Completed 10/18/2019 47134 Echography Uterus Follow-Up Or Repeat Completed 08/10/2019 47815 Echography Uterus Complete Completed 06/06/2019 44865 OB Ultrasound First Trimester Completed Medical Devices [...] 1:30 pm - Linda Ceron MD at [facility]12/16/2019 3:15 pm - Tino Lema CNM at [facility]12/09/2019 7:45 am - Linda Ceron MD at [facility] O R011/25/2019 - Linda Cerno MDO24.410 Gestational diabetes mellitus in , diet [...] to Reason for Referral Status Appt Date [place] for [facility] Living GDM Closed [facility] [address] [place] [address] [phone]
--- OUTSIDE RECORDS SUMMARY | 2019-12-09 06:38 | XMS REPORT | Continuity of Care Document ---
:1985 External Reference #:[id number] Author Name Jaxon Marc JR, DO (transmitted by agent of provider Linda Alejandre) Address [address], [place] [address] Care Team Providers Name Role Phone Tacho Gutierrez - Internal Care Team Information New Car Make Ready Worker Medicine Problems Description No Information Available Social History Type Date Description Comments Sex Unknown Cigarette Use Does Not Smoke Cigarettes ETOH Use Denies alcohol use Recreational Drug Use Denies Drug Use Tobacco Use Start: Unknown Patient has never smoked Smoking Status Reviewed: 05/03/19 Patient has never smoked Seat Belt/Car Seat Always uses seat belt Allergies, Adverse Reactions, Alerts Description No Known Drug Allergies Medications Active Medications SIG Qnty Indications Ordering Date Provider Humulin N Kwikpen inject 4 units 9Syringe Jaxon Marc 10/10/2019 subcutaneously every JR, DO 100Unit/ML Supn night BD Pen use with kwikpen. 100units O24.414 Jaxon Marc 10/10/2019 Needle/Dodie/Ultra JR DO -Fine/32G X 4mm 32G X 4 mm Misc Blood Glucose use in in the morning 1Monitor Daniella Muhammad, 09/26/2019 Monitoring System before eating, then 2 MD hours after every W/Device Kit meal Blood Glucose Test use for blood glucose 100units aDniella Muhammad, 2019 testing four times MD Strips per day Lancet Device use for blood glucose 100units Daniella Muhammad, 09/26/2019 testing four times MD Misc per day + Dha 1 by mouth every day 60units Sindhu Barr, 05/03/2019 CNM 27-1&250mg THPK History Medications Fluconazole 1 tablet then second 2tabs Arnold Day, 06/07/2019 - 150mg Tablets tablet 72 hours CNM 09/01/2019 later as needed for continuing symptoms Clotrimazole/Betametha apply to affected 15gm Arnold Day, 06/07/2019 - sone Dipropionate area up to twice per CNM 09/01/2019 1-0.05% day for 2-3 days Cream Medications Administered in Office Medication SIG Qnty Indications Ordering Provider Date PT SCRN Tbco Id as Non User Sindhu Barr, CN 05/03/2019 Injection Immunizations CPT Code Status Date Vaccine Lot # [id number] Given 09/26/2019 Tetnus, Diptheria Toxoids And Acellular Pertussis, DC924 PT > 7Yrs Old [address] Given 06/06/2019 Influenza Virus Vaccine Split Virus Use For 507126 Individual 3Yr Older Vital Signs Date Vital Result Comment 05/03/2019 8:52am BP Systolic 108 mmHg BP Diastolic 64 mmHg Height 63 inches 5'3" Weight 145.00 lb BMI (Body Mass Index) 25.7 kg/m2 Last Menstrual Period 2466171 3 Parity 2 Results Test Acquired Date Facility Test Result H/L Range Note Laboratory test 09/26/2019 [facility] Glucose 1 HR 203 mg/dL High 70-160 1 [place] [address] Post Prandial [phone] CBC With No 09/26/2019 [facility] White Blood 8.2 Normal 3.5- 10.8 [place] [address] Count 10^3/uL [phone] Red Blood Count 3.75 10^6/uL Normal 3.70-4.87 Hemoglobin 11.2 g/dL Low 12.0-16.0 Hematocrit 33 % Low 35-47 Mean Corpuscular Volume 89 fL Normal 80-97 Mean Corpuscular Hemoglobin 30 pg Normal 27-31 Mean Corpuscular HGB Conc 34 g/dL Normal 31-36 Red Cell Distribution Width 14 % Normal 10-15 Platelet Count 177 10^3/uL Normal 150-450 Mean Platelet Volume 9.6 fL Normal 7.4-10.4 Drug Screen 09/08/2019 [facility] Urine None Detected [place] [address] Hydrocodone [facility] [phone] Screen Urine Oxycodone Screen None Detected None [...] Urine Phencyclidine Screen None Detected None Detect 2 Laboratory test 08/10/2019 [facility] TSH 2.08 mcIU/mL Normal 0.34-5.60 3 [place] [address] [phone] Thyroxine 8.23 g/dL Normal 6.09-12.23 4 1,25 Dihydroxy 08/10/2019 [facility] Calcitriol 147 pg/mL Abnormal 18-78 5 [place] [address] [phone] Afp,Screen 07/04/2019 [facility] [place] [address] Summary risk [phone] Neural Tube Defect Estimate SEE BELOW 6 Collection Date 07/04/19 Maternal Date of 83 Calculated Age At HARVEY 34 years Maternal Weight 145 lbs Insulin Dependent Diabetes No Current Cigarette Smoking Stat non-smoker Patient Race non-Black Number of Fetuses 1 Number of Chorions See Comment 7 Ivf N o Prev Preg w/Neural Tube Defect N o Patient/Father of Baby Has NTD N o Initial Or Repeat Testing Initial testing HARVEY by U/S Scan 12/16/19 Physician Phone Number [phone] GA On Collection by U/S SEE BELOW wk,d 8 GA Used In Risk Estimate Scan estimate Afp 33.1 ng/mL Afp MoM 0.90 MoM <2.50 Interpretation See Comment 9 Additional Comments See Comment 10 Recommended Follow Up None. General Test Information See Comment 11 Laboratory test 07/04/2019 [facility] T4 Free 0.82 ng/dL Normal 0.61-1.12 12 [place] [address] [phone] TSH 2.88 mcIU/mL Normal 0.34-5.60 13 Urine Culture And 06/06/2019 [facility] Urine Culture SEE RESULT 14 [place] [address] BELOW [phone] Laboratory test 06/06/2019 [facility] Gardnerella/Ye SEE RESULT 15 [place] [address] ast: Vaginal BELOW [phone] Dna GC/Chlamydia Dna 06/06/2019 [facility] Chlamydia [place] [address] trachomatis [phone] Zohra Neisseria gonorrhoeae (GC) Zohra Negative Negative Laboratory test 06/06/2019 [facility] Cytology SEE RESULT 16 [place] [address] BELOW [phone] Laboratory test 06/06/2019 [facility] TSH 2.70 mcIU/mL Normal 0.34-5 17 [place] [address] .60 [phone] T4 Free 0.73 ng/dL Normal 0.61-1.12 18 Parvovirus B19 06/06/2019 [facility] Parvovirus Negative [place] [address] (B19) IgG [phone] Antibody Parvovirus (B19) IgM Antibody Negative Negative Parvovirus Interpretation See Comment 19 HIV 1&2 p24 06/06/2019 [facility] HIV 4th [place] [address] Generation [phone] Lead 06/06/2019 [facility] Lead,Venous, B < 1.0 g/dL 0.0- 4.9 20 [place] [address] [phone] Venous/Capillary Venous Submitting Laboratory Phone [phone] Type And Screen 06/06/2019 [facility] Patient [place] [address] [phone] Antibody Screen NEGATIVE CBC With No 06/06/2019 [facility] White Blood 9.7 10^3/uL Normal 3.5-10.8 [place] [address] Count [phone] Red Blood Count 4.00 10^6/uL Normal 3.70-4.87 Hemoglobin 11.8 g/dL Low 12.0-16.0 Hematocrit 36 % Normal 35-47 Mean Corpuscular Volume 90 fL Normal 80-97 Mean Corpuscular Hemoglobin 30 pg Normal 27-31 Mean Corpuscular HGB Conc 33 g/dL Normal 31-36 Red Cell Distribution Width 14 % Normal 10-15 Platelet Count 189 10^3/uL Normal 150-450 Mean Platelet Volume 9.9 fL Normal 7.4-10.4 PNL No 06/06/2019 [facility] Rubella Screen Immune Immune 22 [place] [address] [phone] Hemoglobin A1c 5.4 % Normal 4.0-5.6 23 Hepatitis B Surface Ag Nonreactive Nonreactive 24 Syphillis Igg W/Reflex RPR Negative Negative 25 Chromosomes 13, 18, 06/06/2019 [employer] Chromosome 13 Negative Normal 26 21 + Sex Chromosome Aneuploidy Chromosome 18 Aneuploidy Negative Normal 27 Chromosome 21 Aneuploidy Negative Normal 28 Sex Chromosome Analysis Female Normal 29 PDF Report SEE IMAGE 1 [id number] 2 The specimen was tested at the listed cutoffs: Drug Class Test level (ng/mL) Hydrocodone 300 Oxycodone 100 Fentanyl 1 Methadone 150 Buprenorphine 5 Amphetamines 500 Barbiturates 200 Benzodiazepines 200 Cocaine 150 Cannabinoids 50 Opiates 300 PCP 25 Specimen was received without chain of custody. Results should be used for medical purposes only. 3 [id number] 4 [id number] 5 ADDITIONAL INFORMATION This test was developed and its performance characteristics determined by [facility] in a manner consistent with CLIA requirements. This test has not been cleared or approved by the U.S. Food and Drug Administration. Test Performed by: [facility] [employer] - [facility] [address] [place] [address] Sales Planning Coordinator: Ruddy Mejias M.D. Ph.D.; CLIA# [id number] RESULT: 1/11,000 7 RESULT: Not provided by client 8 RESULT: 16,3 9 RESULT: Screen negative for neural tube defects. 10 RESULT: Reviewed by Olive Hernandez,Ph.D. 11 This screening provides an estimation of risk, [...] developed and its performance characteristics determined by [facility] in a manner consistent with CLIA requirements. This test has not been cleared or approved by the U.S. Food and Drug Administration. Test Performed by: [facility] - [facility] [address] Director: Ruddy Mejias M.D. Ph.D.; CLIA# [id number] 12 [id number] 13 [id number] 14 SEE RESULT BELOW Name: CAITLYN MACHADO : [address]: Arnold Day CNM Acct: [id number] Unit: [id number] AGE: 33 Location: [facility] Re06/06/19 SEX: F Status: REG REF SPEC: [id number] CLAUDIO: 06/06/[address]: Arnold Day [facility] REQ: [id number] RECD: 06/06/19 STATUS: COMP _ SOURCE: URINE SPDESC: ORDERED: Urine Culture COMMENTS: [id number] Urine Source: Random Procedure Result Reported Site Urine Culture Final 06/07/19- 1205 ML No growth of clinically significant organisms * ML - Main Lab . END OF REPORT DEPARTMENT OF PATHOLOGY, [address] [place] [address] Ervin Leon M.D. Director [facility] # [id number] 15 SEE RESULT BELOW Name: CARTERPIPEM : [address]: Arnold Day [facility] Acct: [id number] Unit: [id number] AGE: 33 Location: [facility] Re06/06/19 SEX: F Status: REG REF SPEC: [id number] CLAUDIO: 06/06/[address]: Arnold Day [facility] REQ: [id number] RECD: 06/06/19 STATUS: COMP _ SOURCE: VAGINAL SPDESC: ORDERED: Sharon,Yeast DNA COMMENTS: [id number] Would you like to order Trichomonas Vaginalis [...] test for therapeutic success or failure. * - Main Lab . END OF REPORT DEPARTMENT OF PATHOLOGY, [address] [place] [address] Ervin Leon M.D. Director [facility] # [id number] 16 SEE RESULT BELOW Name: CAITLYN MACHADO : [address]: Arnold Day [facility] Acct: [id number] Unit: [id number] AGE: 33 Location: [facility] Re06/06/19 SEX: F Status: REG REF SPEC: [id number] CLAUDIO: 06/06/[address] [facility] [address]: Arnold Day [facility] REQ: [id number] RECD: 06/06/19 STATUS: SOUT _ ORDERED: TP IMAGE ANALYS, HPV/Thin Prep COMMENTS: [id number] FINAL DIAGNOSIS Negative for Intraepithelial lesion or Malignancy HPV RESULTS Date Time Test Result Flag (u) Normal Range 06/06/19929 HPV ZOHRA Negative Negative The high-risk HPV [...] CONTINUED ON NEXT PAGE DEPARTMENT OF PATHOLOGY, [address] [place] [address] Ervin Leon M.D. Director [facility] # [id number] Previous Abnormal Pap Smears?:N Signed by and Reported on: ADRIANNA Cortes (ASCP) 1455 This Pap test was evaluated with the assistance of the registracija vozilaPrep Test Imaging System. Due to cytologic findings at the head counselor microscope, comprehensive manual rescreening by a [employer] Director Intelligence Officer may be required. The Pap Smear is [...] years. END OF REPORT DEPARTMENT OF PATHOLOGY, [address] [place] [address] Ervin Leon M.D. Director [facility] # [id number] 17 [id number] 18 [id number] 19 No antibody to Parvovirus B19 detected. Acute infection cannot be ruled out as antibody levels may be below the limit of detection. If clinically indicated, a second serum should be submitted in 14-21 days. ADDITIONAL INFORMATION This test has been modified from the petroleum products sales representative's instructions. Its performance characteristics were determined by [facility] in a manner consistent with CLIA requirements. This test has not been cleared or approved by the U.S. Food and Drug Administration. Test Performed by: [facility] - [facility] [address] [place] [address] Sales Planning Coordinator: Ruddy Mejias M.D. Ph.D.; CLIA# [id number] 20 ADDITIONAL INFORMATION Testing performed by Inductively Coupled Plasma-Mass Spectrometry (ICP-MS). This test was developed and its performance characteristics determined by [facility] in a manner consistent with CLIA requirements. This test has not been cleared or approved by the U.S. Food and Drug Administration. 21 Test Performed by: [facility] - [facility] [address] [facility], [place] [address] Sales Planning Coordinator: Ruddy Mejias M.D. Ph.D.; CLIA# [id number] 22 [id number] 23 Therapeutic target for the treatment of diabetes mellitus patients is <7% HBA1C, and in selective patients <6.0%. Please refer to [place] [employer] diabetic care guidelines for further information. 24 [id number] 25 [id number] 26 No aneuploidy detected. 27 No aneuploidy detected. 28 No aneuploidy detected. 29 Female: No aneuploidy detected. Procedures Date Code Description Status 10/18/2019 26439 Biophysical Profile Without Non Stress Test Completed 10/18/2019 25491 Echography Uterus Follow-Up Or Repeat Completed 08/10/2019 91975 Echography Uterus Complete Completed 06/06/2019 51798 OB Ultrasound First Trimester Completed Medical Devices Description No Information Available Encounters Description No Information Available Assessments Date Code Description Provider 11/07/2019 O34.211 Maternal care for low transverse [...] unspecified, first trimester Plan of Treatment Future Appointment(s):11/18/2019 10:15 am - Ultrasounds at [facility]2019 10:45 am - Daniella Muhammad MD at [facility]12/09/2019 7:45 am - Linda Ceron MD at [facility] O R011/30/2019 2:15 pm - Linda Ceron MD at [facility] Functional Status Description No Information Available Mental Status Description No Information Available Referrals Refer to Dr Reason for Referral Status Appt Date [facility] Closed [facility] [address] [facility] [place] [address] [phone]
--- OUTSIDE RECORDS SUMMARY | 2019-12-09 06:38 | XMS REPORT | Continuity of Care Document ---
:1985 External Reference #:[id number] Author Name Sylvia Amin MD Address [address] [place] [address] Care Team Providers Name Role Phone Tacho Gutierrez - Internal Care Team Information Family Preservation Officer Medicine Problems Description No Information Available Social [...] Glucose use in in the morning 1Monitor Phaelmark 09/26/2019 - Monitoring System before eating, then [...] CPT Code Status Date Vaccine Lot # 79654 Given 09/26/2019 Tetnus, Diptheria Toxoids And Acellular Pertussis, DC924 PT > 7Yrs Old [address] Given 06/06/2019 Influenza Virus Vaccine Split Virus Use For 054381 Individual 3Yr Older Vital Signs Date Vital Result Comment 05/03/2019 8:52am BP Systolic 108 mmHg BP Diastolic 64 mmHg Height 63 inches 5'3" Weight 145.00 lb BMI (Body Mass Index) 25.7 kg/m2 Last Menstrual Period 5190376 3 Parity 2 Results Test Acquired Date Facility Test Result H/L Range Note Laboratory test 11/18/2019 [facility] B Strep SEE RESULT 1, [address] [place] [address] Culture BELOW [phone] Screen Laboratory test 09/26/2019 [facility] Glucose 1 HR 203 mg/dL High 70-160 [address] [place] [address] Post Prandial [phone] CBC With No 09/26/2019 [facility] White Blood 8.2 Normal 3.5- 10.8 [place] [address] Count 10^3/uL [phone] Red Blood Count 3.75 10^6/uL Normal 3.70-4.87 Hemoglobin 11.2 g/dL Low 12.0-16.0 Hematocrit 33 % Low 35-47 Mean Corpuscular Volume 89 fL Normal 80-97 Mean Corpuscular Hemoglobin 30 pg Normal 27-31 Mean Corpuscular HGB Conc 34 g/dL Normal 31-36 Red Cell Distribution Width 14 % Normal 10-15 Platelet Count 177 10^3/uL Normal 150-450 Mean Platelet Volume 9.6 fL Normal 7.4-10.4 Drug Screen 09/08/2019 [facility] Urine None Detected None [place] [address] Hydrocodone [facility] [phone] Screen Urine Oxycodone Screen None Detected None [...] Detected None Detect 4 Laboratory test 08/10/2019 [facility] TSH 2.08 mcIU/mL Normal 0.34-5.60 5 [place] [address] [phone] Thyroxine 8.23 g/dL Normal 6.09-12.23 6 1,25 Dihydroxy 08/10/2019 [facility] Calcitriol 147 pg/mL Abnormal 18-78 7 [place] [address] [phone] Afp,Screen 07/04/2019 [facility] [place] [address] Summary risk [phone] Neural Tube Defect Estimate SEE BELOW 8 [...] by U/S Scan 12/16/19 Physician Phone Number [phone] GA On Collection by U/S SEE BELOW wk,d 10 GA Used In Risk Estimate Scan estimate Afp 33.1 ng/mL Afp MoM 0.90 MoM <2.50 Interpretation See Comment 11 Additional Comments See Comment 12 Recommended Follow Up None. General Test Information See Comment 13 Laboratory test 07/04/2019 [facility] T4 Free 0.82 ng/dL Normal 0.61-1.12 14 [place] [address] [phone] TSH 2.88 mcIU/mL Normal 0.34-5.60 15 Urine Culture And 06/06/2019 [facility] Urine Culture SEE RESULT 16 [place] [address] BELOW [phone] Laboratory test 06/06/2019 [facility] Gardnerella/Ye SEE RESULT [address] [place] [address] ast: Vaginal BELOW [phone] Dna GC/Chlamydia Dna 06/06/2019 [facility] Chlamydia [place] [address] trachomatis [phone] Zohra Neisseria gonorrhoeae (GC) Zohra Negative Negative Laboratory test 06/06/2019 [facility] Cytology SEE RESULT 18 [place] [address] BELOW [phone] Laboratory test 06/06/2019 [facility] TSH 2.70 mcIU/mL Normal 0.34-5 19 [place] [address] .60 [phone] T4 Free 0.73 ng/dL Normal 0.61-1.12 20 Parvovirus B19 06/06/2019 [facility] Parvovirus Negative Negative [place] [address] (B19) IgG [phone] Antibody Parvovirus (B19) IgM Antibody Negative Negative Parvovirus Interpretation See Comment 21 HIV 1&2 p24 06/06/2019 [facility] HIV 4th [place] [address] Generation [phone] Lead 06/06/2019 [facility] Lead,Venous, B < 1.0 g/dL 0.0- 4.9 22 [place] [address] [phone] Venous/Capillary Venous Submitting Laboratory Phone [phone] Type And Screen 06/06/2019 [facility] Patient [place] [address] [phone] Antibody Screen NEGATIVE CBC With No 06/06/2019 [facility] White Blood 9.7 10^3/uL Normal 3.5-10.8 [place] [address] Count [phone] Red Blood Count 4.00 10^6/uL Normal 3.70-4.87 Hemoglobin 11.8 g/dL Low 12.0-16.0 Hematocrit 36 % Normal 35-47 Mean Corpuscular Volume 90 fL Normal 80-97 Mean Corpuscular Hemoglobin 30 pg Normal 27-31 Mean Corpuscular HGB Conc 33 g/dL Normal 31-36 Red Cell Distribution Width 14 % Normal 10-15 Platelet Count 189 10^3/uL Normal 150-450 Mean Platelet Volume 9.9 fL Normal 7.4-10.4 PNL No 06/06/2019 [facility] Rubella Screen Immune Immune 24 [place] [address] [phone] Hemoglobin A1c 5.4 % Normal 4.0-5.6 25 Hepatitis B Surface Ag Nonreactive Nonreactive 26 Syphillis Igg W/Reflex RPR Negative Negative 27 Chromosomes 13, 18, 06/06/2019 [facility] Chromosome 13 Negative Normal 28 21 + Sex Chromosome Aneuploidy Chromosome 18 Aneuploidy Negative Normal 29 Chromosome 21 Aneuploidy Negative Normal 30 Sex Chromosome Analysis Female Normal 31 PDF Report SEE IMAGE 1 [id number] 2 SEE RESULT BELOW Name: CAITLYN MACHADO : [address]: Daniella Muhammad MD Acct: [id number] Unit: [id number] AGE: 34 Location: [facility] Re11/18/19 SEX: F Status: REG REF SPEC: [id number] CLAUDIO: 11/18/19-[address] [facility] [address]: Daniella Muhammad MD REQ: [id number] RECD: 11/18/19160 STATUS: RES _ SOURCE: SHELBIE/VAG/RE SPDESC: ORDERED: Storm Russell COMMENTS: [id number] QUERIES: Is patient penicillin allergic and/or sensitivities [...] resistant strains have not been recognized. (CLSI Q659-O37;p.66) Positive isolates will be saved for one week. Please call the Microbiology Laboratory if further susceptibility testing is needed. * ML - Main Lab . END OF REPORT DEPARTMENT OF PATHOLOGY, [address] [place] [address] Ervin Leon M.D. Director [facility] # [id number] 3 [id number] 4 The specimen was tested at the listed cutoffs: Drug Class Test level (ng/mL) Hydrocodone 300 Oxycodone 100 Fentanyl 1 Methadone 150 Buprenorphine 5 Amphetamines 500 Barbiturates 200 Benzodiazepines 200 Cocaine 150 Cannabinoids 50 Opiates 300 PCP 25 Specimen was received without chain of custody. Results should be used for medical purposes only. 5 [id number] 6 [id number] 7 ADDITIONAL INFORMATION This test was developed and its performance characteristics determined by [facility] in a manner consistent with CLIA requirements. This test has not been cleared or approved by the U.S. Food and Drug Administration. Test Performed by: [facility] [address] [place] [address] Wash Worker: Ruddy Mejias M.D. Ph.D.; CLIA# [id number] 8 RESULT: 9 RESULT: Not provided by [...] and its performance characteristics determined by [facility] in a manner consistent with CLIA requirements. This test has not been cleared or approved by the U.S. Food and Drug Administration. Test Performed by: [place] [address] Wash Worker: Ruddy Mejias M.D. Ph.D.; CLIA# [id number] 14 [id number] 15 [id number] 16 SEE RESULT BELOW Name: CIATLYN MACHADO : [address]: Arnold Day [facility] Acct: [id number] Unit: [id number] AGE: 33 Location: [facility] Re06/06/19 SEX: F Status: REG REF SPEC: [id number] CLAUDIO: 06/06/[address]: Arnold Day [facility] REQ: [id number] RECD: 06/06/19 STATUS: COMP _ SOURCE: URINE SPDESC: ORDERED: Urine Culture COMMENTS: [id number] Urine Source: Random Procedure Result Reported Site Urine Culture Final 06/07/19- 1205 ML No growth of clinically significant organisms * ML - Main Lab . END OF REPORT DEPARTMENT OF PATHOLOGY, [address] [place] [address] Ervin Leon M.D. Director [facility] # [id number] 17 SEE RESULT BELOW Name: CAITLYN MACHADO : [address]: Arnold Day [facility] Acct: [id number] Unit: [id number] AGE: 33 Location: [facility] Re06/06/19 SEX: F Status: REG REF SPEC: [id number] CLAUDIO: 06/06/[address]: Arnold Day [facility] REQ: [id number] RECD: 06/06/19 STATUS: COMP _ SOURCE: VAGINAL SPDESC: ORDERED: Sharon,Yeast DNA COMMENTS: [id number] Would you like to order Trichomonas Vaginalis [...] . END OF REPORT DEPARTMENT OF PATHOLOGY, [address] [place] [address] Ervin Leon M.D. Director [facility] # [id number] 18 SEE RESULT BELOW Name: MAGDALENAPIPE RUSSELLM : [address]: Arnold Day CNM Acct: [id number] Unit: [id number] AGE: 33 Location: [facility] Re06/06/19 SEX: F Status: REG REF SPEC: [id number] CLAUDIO: 06/06/[address]: Arnold Day CNM REQ: [id number] RECD: 06/06/19 STATUS: SOUT _ ORDERED: TP IMAGE ANALYS, HPV/Thin Prep COMMENTS: [id number] FINAL DIAGNOSIS Negative for Intraepithelial lesion or [...] CONTINUED ON NEXT PAGE DEPARTMENT OF PATHOLOGY, [address] [place] [address] Ervin Leon M.D. Director [facility] # [id number] Previous Abnormal Pap Smears?:N Signed by and Reported on: ADRIANNA Cortes (ASCP) 3574 This Pap test was evaluated with the assistance of the ThinPrep Test Imaging System. Due to cytologic findings at the railway station manager microscope, comprehensive manual rescreening by a Sas Programmer Remote may be required. The Pap Smear is [...] years. END OF REPORT DEPARTMENT OF PATHOLOGY, [address] [place] [address] Ervin Leon M.D. Director [facility] # [id number] 19 [id number] 20 [id number] 21 No antibody to Parvovirus B19 detected. Acute infection cannot be ruled out as antibody levels may be below the limit of detection. If clinically indicated, a second serum should be submitted in 14-21 days. ADDITIONAL INFORMATION This test has been modified from the veterinary assistant technician's instructions. Its performance characteristics were determined by [facility] in a manner consistent with CLIA requirements. This test has not been cleared or approved by the U.S. Food and Drug Administration. Test Performed by: [facility] - [address] [address] Wash Worker: Ruddy Mejias M.D. Ph.D.; CLIA# [id number] 22 ADDITIONAL INFORMATION Testing performed by Inductively Coupled Plasma-Mass Spectrometry (ICP-MS). This test was developed and its performance characteristics determined by [facility] in a manner consistent with CLIA requirements. This test has not been cleared or approved by the U.S. Food and Drug Administration. 23 Test Performed by: [facility] [address] [facility], [place] [address] Wash Worker: Ruddy Mejias M.D. Ph.D.; CLIA# [id number] 24 [id number] 25 Therapeutic target for the treatment of diabetes mellitus patients is <7% HBA1C, and in selective patients <6.0%. Please refer to [place] [employer] diabetic care guidelines for further information. 26 [id number] 27 [id number] 28 No aneuploidy detected. 29 No aneuploidy detected. 30 No aneuploidy detected. 31 Female: No aneuploidy detected. Procedures Date Code Description Status 11/18/2019 95580 Biophysical Profile Without Non Stress Test Completed 11/18/2019 54090 Echography Uterus Follow-Up Or Repeat Completed 10/18/2019 78366 Biophysical Profile Without Non Stress Test Completed 10/18/2019 70683 Echography Uterus Follow-Up Or Repeat Completed 08/10/2019 79784 Echography Uterus Complete Completed 06/06/2019 33191 OB Ultrasound First Trimester Completed Medical Devices [...] care for low transverse scar Jaxon Marc JR DO from previous delivery 10/25/2019 O24.410 Gestational diabetes mellitus in Sylvia Amin MD , diet controlled 10/18/2019 O99.810 Abnormal glucose complicating Dionicio Amaral M.D. 10/18/2019 O24.410 Gestational diabetes mellitus in Dionicio A. Gelber, M.D. , diet controlled 10/18/2019 O99.810 Abnormal [...] 1:30 pm - Linda Ceron MD at [facility]12/16/2019 3:15 pm - Tino Lema CNM at [facility]12/09/2019 7:45 am - Linda Ceron MD at [facility] R011/25/2019 - Linda Ceron MDO24.410 Gestational [...] to Reason for Referral Status Appt Date [facility] Living GDM Closed [facility] [address] [place] [address] [phone]
--- OUTSIDE RECORDS SUMMARY | 2019-12-09 06:38 | XMS REPORT | Continuity of Care Document ---
:1985 External Reference #:[id number] Author Name Daniella Muhammad MD Address [address] [place] [address] Care Team Providers Name Role Phone Tacho Gutierrez - Internal Care Team Information Psychologist Private Practice Medicine Problems Description No Information Available Social [...] Provider Date + Dha 1 by mouth 60units Sindhu Barr CNM 05/03/2019 every day 27-1&250mg THPK History Medications Humulin N Kwikpen inject 4 [...] Lancet Device use for blood glucose 100units Ziggyelmark 09/26/2019 - Misc testing four times MD Sabina 11/18/2019 per day Fluconazole 1 tablet then second 2tabs Dannina 06/07/2019 - 150mg tablet 72 hours later KARL Day 09/01/2019 Tablets as needed for continuing symptoms Clotrimazole/Betame apply to affected 15gm Dannina 06/07/2019 - thason area up to twice per KARL Day 09/01/2019 Dipropionate day for 2-3 days 1-0.05% Cream Medications Administered in Office Medication SIG Qnty Indications Ordering Provider Date PT SCRN Tbco Id as Non User Sindhu BarrKARL 05/03/2019 Injection Immunizations CPT Code Status Date Vaccine Lot # [id number] Given 09/26/2019 Tetnus, Diptheria Toxoids And Acellular Pertussis, DC924 PT > 7Yrs Old [address] Given 06/06/2019 Influenza Virus Vaccine Split Virus Use For [id number] Individual 3Yr Older Vital Signs Date Vital Result Comment 05/03/2019 8:52am BP Systolic 108 mmHg BP Diastolic 64 mmHg Height 63 inches 5'3" Weight 145.00 lb BMI (Body Mass Index) 25.7 kg/m2 Last Menstrual Period 0823254 3 Parity 2 Results Test Acquired Date Facility Test Result H/L Range Note Laboratory test 11/18/2019 [facility] Genital For <pending> [place] [address] GRP B Strep [phone] Only Laboratory test 09/26/2019 [facility] Glucose 1 HR 203 mg/dL High 70-160 1 [place] [address] Post Prandial [phone] CBC With No 09/26/2019 [facility] White Blood 8.2 Normal 3.5- 10[place]8 [place] [address] Count 10^3/uL [phone] Red Blood Count 3.75 10^6/uL Normal 3.70-4.87 Hemoglobin 11.2 g/dL Low 12.0-16.0 Hematocrit 33 % Low 35-47 Mean Corpuscular Volume 89 fL Normal 80-97 Mean Corpuscular Hemoglobin 30 pg Normal 27-31 Mean Corpuscular HGB Conc 34 g/dL Normal 31-36 Red Cell Distribution Width 14 % Normal 10-15 Platelet Count 177 10^3/uL Normal 150-450 Mean Platelet Volume 9.6 fL Normal 7.4-10.4 Drug Screen 09/08/2019 [facility] Urine None Detected [place] [address] Hydrocodone [facility] [phone] Screen Urine Oxycodone Screen None Detected None [...] Detected None Detect 2 Laboratory test 08/10/2019 [facility] TSH 2.08 mcIU/mL Normal 0.34-5.60 3 [place] [address] [phone] Thyroxine 8.23 g/dL Normal 6.09-12.23 4 1,25 Dihydroxy 08/10/2019 [facility] Calcitriol 147 pg/mL Abnormal 18-78 5 [place] [address] [phone] Afp,Screen 07/04/2019 [facility] [place] [address] Summary risk [phone] Neural Tube Defect Estimate SEE BELOW 6 [...] by U/S Scan 12/16/19 Physician Phone Number [phone] GA On Collection by U/S SEE BELOW wk,d 8 GA Used In Risk Estimate Scan estimate Afp 33.1 ng/mL Afp MoM 0.90 MoM <2.50 Interpretation See Comment 9 Additional Comments See Comment 10 Recommended Follow Up None. General Test Information See Comment 11 Laboratory test 07/04/2019 [facility] T4 Free 0.82 ng/dL Normal 0.61-1.12 12 [place] [address] [phone] TSH 2.88 mcIU/mL Normal 0.34-5.60 13 Urine Culture And 06/06/2019 [facility] Urine Culture SEE RESULT 14 [place] [address] BELOW [phone] Laboratory test 06/06/2019 [facility] Gardnerella/Ye SEE RESULT 15 [place] [address] ast: Vaginal BELOW [phone] Dna GC/Chlamydia Dna 06/06/2019 [facility] Chlamydia [place] [address] trachomatis [phone] Zohra Neisseria gonorrhoeae (GC) Zohra Negative Negative Laboratory test 06/06/2019 [facility] Cytology SEE RESULT 16 [place] [address] BELOW [phone] Laboratory test 06/06/2019 [facility] TSH 2.70 mcIU/mL Normal 0.34-5 17 [place] [address] .60 [phone] T4 Free 0.73 ng/dL Normal 0.61-1.12 18 Parvovirus B19 06/06/2019 [facility] Parvovirus Negative Negative [place] [address] (B19) IgG [phone] Antibody Parvovirus (B19) IgM Antibody Negative Negative Parvovirus Interpretation See Comment 19 HIV 1&2 p24 06/06/2019 [facility] HIV 4th [place] [address] Generation [phone] Lead 06/06/2019 [facility] Lead,Venous, B < 1.0 g/dL 0.0- 4.9 20 [place] [address] [phone] Venous/Capillary Venous Submitting Laboratory Phone [phone] Type And Screen 06/06/2019 [facility] Patient [place] [address] [phone] Antibody Screen NEGATIVE CBC With No 06/06/2019 [facility] White Blood 9.7 10^3/uL Normal 3.5-10.8 [place] [address] Count [phone] Red Blood Count 4.00 10^6/uL Normal 3.70-4.87 Hemoglobin 11.8 g/dL Low 12.0-16.0 Hematocrit 36 % Normal 35-47 Mean Corpuscular Volume 90 fL Normal 80-97 Mean Corpuscular Hemoglobin 30 pg Normal 27-31 Mean Corpuscular HGB Conc 33 g/dL Normal 31-36 Red Cell Distribution Width 14 % Normal 10-15 Platelet Count 189 10^3/uL Normal 150-450 Mean Platelet Volume 9.9 fL Normal 7.4-10.4 PNL No 06/06/2019 [facility] Rubella Screen Immune Immune 22 [place] [address] [phone] Hemoglobin A1c 5.4 % Normal 4.0-5.6 23 Hepatitis B Surface Ag Nonreactive Nonreactive 24 Syphillis Igg W/Reflex RPR Negative Negative 25 Chromosomes 13, 18, 06/06/2019 [facility] Chromosome 13 Negative Normal 26 21 + Sex Chromosome Aneuploidy Chromosome 18 Aneuploidy Negative Normal 27 Chromosome 21 Aneuploidy Negative Normal 28 Sex Chromosome Analysis Female Normal 29 PDF Report SEE IMAGE 1 [id number] 2 The specimen was tested at the listed cutoffs: Drug Class Test level (ng/mL) Hydrocodone 300 Oxycodone 100 Fentanyl 1 Methadone 150 Buprenorphine 5 Amphetamines 500 Barbiturates 200 Benzodiazepines 200 Cocaine 150 Cannabinoids 50 Opiates 300 PCP 25 Specimen was received without chain of custody. Results should be used for medical purposes only. 3 [id number] 4 [id number] 5 ADDITIONAL INFORMATION This test was developed and its performance characteristics determined by [facility] in a manner consistent with CLIA requirements. This test has not been cleared or approved by the U.S. Food and Drug Administration. Test Performed by: [place] [address] Fabrication Supervisor: Ruddy Mejias M.D. Ph.D.; CLIA# [id number] RESULT: 7 RESULT: Not provided by client 8 [...] its performance characteristics determined by [facility] in a manner consistent with CLIA requirements. This test has not been cleared or approved by the U.S. Food and Drug Administration. Test Performed by: [facility] [place] [address] Fabrication Supervisor: Ruddy Mejias M.D. Ph.D.; CLIA# [id number] 13 [id number] 14 SEE RESULT BELOW Name: CAITLYN MACHADO : [address]: Arnold Day [facility] Acct: [id number] Unit: [id number] AGE: 33 Location: [facility] Re06/06/19 SEX: F Status: REG REF SPEC: [id number] CLAUDIO: 06/06/[address] [facility] [address]: Arnold Day [facility] REQ: [id number] RECD: 06/06/19 STATUS: COMP _ SOURCE: URINE SPDESC: ORDERED: Urine Culture COMMENTS: [id number] Urine Source: Random Procedure Result Reported Site Urine Culture Final 06/07/19- 1205 ML No growth of clinically significant organisms * ML - Main Lab . END OF REPORT DEPARTMENT OF PATHOLOGY, [address] [address] Ervin Leon M.D. Director [facility] # [id number] 15 SEE RESULT BELOW Name: MAGDALENAJODIE RUSSELLCAITLYN : [address]: Arnold Day [facility] Acct: [id number] Unit: [id number] AGE: 33 Location: [facility] Re06/06/19 SEX: F Status: REG REF SPEC: [id number] CLAUDIO: 06/06/[address]: Arnold Day CNM REQ: [id number] RECD: 06/06/19 STATUS: COMP _ SOURCE: VAGINAL SPDESC: ORDERED: SharonYeast DNA COMMENTS: [id number] Would you like to order Trichomonas Vaginalis [...] . END OF REPORT DEPARTMENT OF PATHOLOGY, [address] [place] [address] Ervin Leon M.D. Director [facility] # [id number] 16 SEE RESULT BELOW Name: CARTERPIPEM : [address]: Arnold Day CNM Acct: [id number] Unit: [id number] AGE: 33 Location: [facility] Re06/06/19 SEX: F Status: REG REF SPEC: [id number] CLAUDIO: 06/06/[address]: Arnold Day [facility] REQ: [id number] RECD: 06/06/19 STATUS: SOUT _ ORDERED: TP IMAGE ANALYS, HPV/Thin Prep COMMENTS: [id number] FINAL DIAGNOSIS Negative for Intraepithelial lesion or [...] CONTINUED ON NEXT PAGE DEPARTMENT OF PATHOLOGY, [address] [place] [address] Ervin Leon M.D. Director [facility] # [id number] Previous Abnormal Pap Smears?:N Signed by and Reported on: ADRIANNA Cortes (ASCP) 3781 This Pap test was evaluated with the assistance of the ThinPrep Test Imaging System. Due to cytologic findings at the log tumbler microscope, comprehensive manual rescreening by a Mortgage Analyst may be required. The Pap Smear is [...] years. END OF REPORT DEPARTMENT OF PATHOLOGY, [address] [place] [address] Ervin Leon M.D. Director [facility] # [id number] 17 [id number] 18 [id number] 19 No antibody to Parvovirus B19 detected. Acute infection cannot be ruled out as antibody levels may be below the limit of detection. If clinically indicated, a second serum should be submitted in 14-21 days. ADDITIONAL INFORMATION This test has been modified from the metal handler's instructions. Its performance characteristics were determined by [facility] in a manner consistent with CLIA requirements. This test has not been cleared or approved by the U.S. Food and Drug Administration. Test Performed by: [facility] [address] [place] [address] Fabrication Supervisor: Ruddy Mejias M.D. Ph.D.; CLIA# [id number] 20 ADDITIONAL INFORMATION Testing performed by Inductively Coupled Plasma-Mass Spectrometry (ICP-MS). This test was developed and its performance characteristics determined by [facility] in a manner consistent with CLIA requirements. This test has not been cleared or approved by the U.S. Food and Drug Administration. 21 Test Performed by: [facility] [address] [id number] Fabrication Supervisor: Ruddy Mejias M.D. Ph.D.; CLIA# [id number] 22 [id number] 23 Therapeutic target for the treatment of diabetes mellitus patients is <7% HBA1C, and in selective patients <6.0%. Please refer to [place] [employer] diabetic care guidelines for further information. 24 [id number] 25 [id number] 26 No aneuploidy detected. 27 No aneuploidy detected. 28 No aneuploidy detected. 29 Female: No aneuploidy detected. Procedures Date Code Description Status 11/18/2019 53088 Biophysical Profile Without Non Stress Test Completed 11/18/2019 76118 Echography Uterus Follow-Up Or Repeat Completed 10/18/2019 72825 Biophysical Profile Without Non Stress Test Completed 10/18/2019 66684 Echography Uterus Follow-Up Or Repeat Completed 08/10/2019 36534 Echography Uterus Complete Completed 06/06/2019 89991 OB Ultrasound First Trimester Completed Medical Devices Description No Information Available Encounters Description No Information Available Assessments Date Code Description Provider 11/18/2019 O99.810 Abnormal glucose complicating Daniella Muhammad [...] unspecified, first trimester Plan of Treatment Future Appointment(s):11/25/2019 8:30 am - Linda Ceron MD at [facility]01/11/2020 1:30 pm - Linda Ceron MD at [facility]12/16/2019 3:15 pm - Tino Lema CNM at [facility]12/09/2019 7:45 am - Linda Ceron MD at [facility] O R Functional Status Description No Information Available Mental Status Description No Information Available Referrals Refer to Reason for Referral Status Appt Date [facility] Closed [facility] [address] [facility] [place] [address] [phone]
--- OUTSIDE RECORDS SUMMARY | 2019-12-09 06:38 | XMS REPORT | Continuity of Care Document ---
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 Medicine Problems Description No Information Available Social [...] CPT Code Status Date Vaccine Lot # [id number] Given 09/26/2019 Tetnus, Diptheria Toxoids And Acellular Pertussis, DC924 PT > 7Yrs Old [address] Given 06/06/2019 Influenza Virus Vaccine Split Virus Use For [id number] Individual 3Yr Older Vital Signs Date Vital Result Comment 05/03/2019 8:52am BP Systolic 108 mmHg BP Diastolic 64 mmHg Height 63 inches 5'3" Weight 145.00 lb BMI (Body Mass Index) 25.7 kg/m2 Last Menstrual Period 5321429 3 Parity 2 Results Test Acquired Date Facility Test Result H/L Range Note Laboratory test 11/18/2019 [facility] B Strep SEE RESULT 1, 2 [place] [address] Culture BELOW [phone] Screen Laboratory test 09/26/2019 [facility] Glucose 1 HR 203 mg/dL High 70-160 3 [place] [address] Post Prandial [phone] CBC With No 09/26/2019 [facility] White Blood 8.2 Normal 3.5- 10[place]8 [place] [address] Count 10^3/uL [phone] Red Blood Count 3.75 10^6/uL Normal 3.70-4.87 Hemoglobin 11.2 g/dL Low 12.0-16.0 Hematocrit 33 % Low 35-47 Mean Corpuscular Volume 89 fL Normal 80-97 Mean Corpuscular Hemoglobin 30 pg Normal 27-31 Mean Corpuscular HGB Conc 34 g/dL Normal 31-36 Red Cell Distribution Width 14 % Normal 10-15 Platelet Count 177 10^3/uL Normal 150-450 Mean Platelet Volume 9.6 fL Normal 7.4-10.4 Drug Screen 09/08/2019 [facility] Urine None Detected [place] [address] Hydrocodone [facility] [phone] Screen Urine Oxycodone Screen None Detected None [...] Detected None Detect 4 Laboratory test 08/10/2019 [facility] TSH 2.08 mcIU/mL Normal 0.34-5.60 5 [place] [address] [phone] Thyroxine 8.23 g/dL Normal 6.09-12.23 6 1,25 Dihydroxy 08/10/2019 [facility] Calcitriol 147 pg/mL Abnormal 18-78 7 [place] [address] [phone] Afp,Screen 07/04/2019 [facility] [place] [address] Summary risk [phone] Neural Tube Defect Estimate SEE BELOW 8 [...] by U/S Scan 12/16/19 Physician Phone Number [phone] GA On Collection by U/S SEE BELOW wk,d 10 GA Used In Risk Estimate Scan estimate Afp 33.1 ng/mL Afp MoM 0.90 MoM <2.50 Interpretation See Comment 11 Additional Comments See Comment 12 Recommended Follow Up None. General Test Information See Comment 13 Laboratory test 07/04/2019 [facility] T4 Free 0.82 ng/dL Normal 0.61-1.12 14 [place] [address] [phone] TSH 2.88 mcIU/mL Normal 0.34-5.60 15 Urine Culture And 06/06/2019 [facility] Urine Culture SEE RESULT 16 [place] [address] BELOW [phone] Laboratory test 06/06/2019 [facility] Gardnerella/Ye SEE RESULT 17 [place] [address] ast: Vaginal BELOW [phone] Dna GC/Chlamydia Dna 06/06/2019 [facility] Chlamydia [place] [address] trachomatis [phone] Zohra Neisseria gonorrhoeae (GC) Zohra Negative Negative Laboratory test 06/06/2019 [facility] Cytology SEE RESULT 18 [place] [address] BELOW [phone] Laboratory test 06/06/2019 [facility] TSH 2.70 mcIU/mL Normal 0.34-5 19 [place] [address] .60 [phone] T4 Free 0.73 ng/dL Normal 0.61-1.12 20 Parvovirus B19 06/06/2019 [facility] Parvovirus Negative Negative [place] [address] (B19) IgG [phone] Antibody Parvovirus (B19) IgM Antibody Negative Negative Parvovirus Interpretation See Comment 21 HIV 1&2 p24 06/06/2019 [facility] HIV 4th [place] [address] Generation [phone] Lead 06/06/2019 [facility] Lead,Venous, B < 1.0 g/dL 0.0- 4.9 22 [place] [address] [phone] Venous/Capillary Venous Submitting Laboratory Phone [phone] Type And Screen 06/06/2019 [facility] Patient [place] [address] [phone] Antibody Screen NEGATIVE CBC With No 06/06/2019 [facility] White Blood 9.7 10^3/uL Normal 3.5-10.8 [place] [address] Count [phone] Red Blood Count 4.00 10^6/uL Normal 3.70-4.87 Hemoglobin 11.8 g/dL Low 12.0-16.0 Hematocrit 36 % Normal 35-47 Mean Corpuscular Volume 90 fL Normal 80-97 Mean Corpuscular Hemoglobin 30 pg Normal 27-31 Mean Corpuscular HGB Conc 33 g/dL Normal 31-36 Red Cell Distribution Width 14 % Normal 10-15 Platelet Count 189 10^3/uL Normal 150-450 Mean Platelet Volume 9.9 fL Normal 7.4-10.4 PNL No 06/06/2019 [facility] Rubella Screen Immune Immune 24 [place] [address] [phone] Hemoglobin A1c 5.4 % Normal 4.0-5.6 25 Hepatitis B Surface Ag Nonreactive Nonreactive 26 Syphillis Igg W/Reflex RPR Negative Negative 27 Chromosomes 13, 18, 06/06/2019 [facility] Chromosome 13 Negative Normal 28 21 + Sex Chromosome Aneuploidy Chromosome 18 Aneuploidy Negative Normal 29 Chromosome 21 Aneuploidy Negative Normal 30 Sex Chromosome Analysis Female Normal 31 PDF Report SEE IMAGE 1 [id number] 2 SEE RESULT BELOW Name: CAITLYN MACHADO : [address]: Daniella Muhammad MD Acct: [id number] Unit: [id number] AGE: 34 Location: [facility] Re11/18/19 SEX: F Status: REG REF SPEC: [id number] CLAUDIO: 11/18/19-1137 [facility] DR: Daniella Muhammad MD REQ: [id number] RECD: 11/18/19 STATUS: RES _ SOURCE: SHELBIE/INO/RE SPDESC: ORDERED: Storm Russell COMMENTS: [id number] QUERIES: Is patient penicillin allergic and/or sensitivities [...] resistant strains have not been recognized. (CLSI T687-S04;p.66) Positive isolates will be saved for one week. Please call the Microbiology Laboratory if further susceptibility testing is needed. * ML - Main Lab . END OF REPORT DEPARTMENT OF PATHOLOGY, [address] [place] [address] Ervin Leon M.D. Director [facility] # [id number] 3 [id number] 4 The specimen was tested at the listed cutoffs: Drug Class Test level (ng/mL) Hydrocodone 300 Oxycodone 100 Fentanyl 1 Methadone 150 Buprenorphine 5 Amphetamines 500 Barbiturates 200 Benzodiazepines 200 Cocaine 150 Cannabinoids 50 Opiates 300 PCP 25 Specimen was received without chain of custody. Results should be used for medical purposes only. 5 [id number] 6 [id number] 7 ADDITIONAL INFORMATION This test was developed and its performance characteristics determined by [facility] in a manner consistent with CLIA requirements. This test has not been cleared or approved by the U.S. Food and Drug Administration. Test Performed by: [facility] [address] [place] [address] [address] Sewer: Ruddy Mejias M.D. Ph.D.; CLIA# [id number] RESULT: 9 RESULT: Not provided by [...] and its performance characteristics determined by [facility] in a manner consistent with CLIA requirements. This test has not been cleared or approved by the U.S. Food and Drug Administration. Test Performed by: [facility] [address] [place] [address] Back Sewer: Ruddy Mejias M.D. Ph.D.; CLIA# [id number] 14 [id number] 15 [id number] 16 SEE RESULT BELOW Name: CAITLYN MACHADO : [address]: Arnold Day CNM Acct: [id number] Unit: [id number] AGE: 33 Location: [facility] Re06/06/19 SEX: F Status: REG REF SPEC: [id number] CLAUDIO: 06/06/[address]: Arnold Day CNM REQ: [id number] RECD: 10/ STATUS: COMP _ SOURCE: URINE SPDESC: ORDERED: Urine Culture COMMENTS: [id number] Urine Source: Random Procedure Result Reported Site Urine Culture Final 06/07/19- 1205 ML No growth of clinically significant organisms * ML - Main Lab . END OF REPORT DEPARTMENT OF PATHOLOGY, [address] [place] [address] Ervin Leon M.D. Director [facility] # [id number] 17 SEE RESULT BELOW Name: CAITLYN MACHADO : [address]: Arnold Day [facility] Acct: [id number] Unit: [id number] AGE: 33 Location: [facility] Re06/06/19 SEX: F Status: REG REF SPEC: [id number] CLAUDIO: 06/06/[address]: Arnold Day [facility] REQ: [id number] RECD: 06/06/19 STATUS: COMP _ SOURCE: VAGINAL SPDESC: ORDERED: Sharon,Yeast DNA COMMENTS: [id number] Would you like to order Trichomonas Vaginalis testing? No Procedure Result Reported Site Gardnerella/Yeast: Vaginal DNA Final 06/07/19- 6 ML Organism 1 POSITIVE LILIAN Organism 2 [...] . END OF REPORT DEPARTMENT OF PATHOLOGY, [address] [place] [address] Ervin Leon M.D. Director [facility] # [id number] 18 SEE RESULT BELOW Name: CAITLYN MACHADO : [address]: Arnold Day CNM Acct: [id number] Unit: [id number] AGE: 33 Location: [facility] Re06/06/19 SEX: F Status: REG REF SPEC: [id number] CLAUDIO: 06/06/19 [facility] DR: Arnold Day CNM REQ: [id number] RECD: 06/06/19 STATUS: SOUT _ ORDERED: TP IMAGE ANALYS, HPV/Thin Prep COMMENTS: [id number] FINAL DIAGNOSIS Negative for Intraepithelial lesion or [...] CONTINUED ON NEXT PAGE DEPARTMENT OF PATHOLOGY, [address] [place] [address] Ervin Leon M.D. Director [facility] # [id number] Previous Abnormal Pap Smears?:N Signed by and Reported on: ADRIANNA Cortes (ASCP) 2787 This Pap test was evaluated with the assistance of the [employer] Test Imaging System. Due to cytologic findings at the bindery production manager microscope, comprehensive manual rescreening by a Enroute Controller may be required. The Pap Smear is [...] years. END OF REPORT DEPARTMENT OF PATHOLOGY, [address] [place] [address] Ervin Leon M.D. Director [facility] # [id number] 19 [id number] 20 [id number] 21 No antibody to Parvovirus B19 detected. Acute infection cannot be ruled out as antibody levels may be below the limit of detection. If clinically indicated, a second serum should be submitted in 14-21 days. ADDITIONAL INFORMATION This test has been modified from the nanny/household manager's instructions. Its performance characteristics were determined by [facility] in a manner consistent with CLIA requirements. This test has not been cleared or approved by the U.S. Food and Drug Administration. Test Performed by: [place] [address] Back Sewer: Ruddy Mejias M.D. Ph.D.; CLIA# [id number] 22 ADDITIONAL INFORMATION Testing performed by Inductively Coupled Plasma-Mass Spectrometry (ICP-MS). This test was developed and its performance characteristics determined by [facility] in a manner consistent with CLIA requirements. This test has not been cleared or approved by the U.S. Food and Drug Administration. 23 Test Performed by: [place] [address] Back Sewer: Ruddy Mejias M.D. Ph.D.; IA# [id number] 24 [id number] 25 Therapeutic target for the treatment of diabetes mellitus patients is <7% HBA1C, and in selective patients <6.0%. Please refer to [place] [employer] diabetic care guidelines for further information. 26 [id number] 27 [id number] 28 No aneuploidy detected. 29 No aneuploidy detected. 30 No aneuploidy detected. 31 Female: No aneuploidy detected. Procedures Date Code Description Status 11/18/2019 66798 Biophysical Profile Without Non Stress Test Completed 11/18/2019 03978 Echography Uterus Follow-Up Or Repeat Completed 10/18/2019 15047 Biophysical Profile Without Non Stress Test Completed 10/18/2019 16661 Echography Uterus Follow-Up Or Repeat Completed 08/10/2019 77144 Echography Uterus Complete Completed 06/06/2019 36105 OB Ultrasound First Trimester Completed Medical Devices [...] Encounter for supervision of other normal Nathalie Gertrude Terrazas, KELYL , second trimester 08/10/2019 Z36.3 Encounter for [...] 1:30 pm - Linda Ceron MD at [facility]12/16/2019 3:15 pm - Tino Lema CNM at [facility]12/09/2019 7:45 am - Linda Ceron MD at [facility] O R Functional Status Description No Information Available Mental Status Description No Information Available Referrals Refer to Reason for Referral Status Appt Date [facility] Closed [address] [place] [id number] [phone]
[2019-12-09] MEDS ORDERED: Buffered Lidocaine 1% SYRIN* 1 ML/SYRINGE INTRADERM ONE (07:04)
[2019-12-09] MEDS ORDERED: OXYTOCIN* 10 UNITS/ML 1 ML VIAL ONE (07:30)
[2019-12-09] MEDS ORDERED: Phenylephrine 40 MCG/ML SYRINGE ONE (07:30)
[2019-12-09] MEDS ORDERED: Morphine PF AMP (0.5MG/ML)* 5 MG/10 ML AMP ONE (07:31)
[2019-12-09] MEDS ORDERED: ceFOXitin 2 GM IVPREMIX* 2 GM/50 ML BAG IVPB ONE (08:03)
[2019-12-09] MEDS ORDERED: fentaNYL* 50 MCG/ML 2 ML VIAL (100 MCG VIAL) IV PRN (08:04)
[2019-12-09] MEDS ORDERED: Naloxone* 0.4 MG/ML 1 ML VIAL IV PRN ×2 (08:04→09:36)
[2019-12-09] MEDS ORDERED: Ondansetron INJ* 2 MG/ML VIAL IV PRN ×2 (08:04→09:36)
[2019-12-09] MEDS ORDERED: Sodium Citrate/Citric Acid* 15 ML UDC ONE (08:06)
[2019-12-09] MEDS ORDERED: ceFOXitin 2 GM IVPREMIX* 2 GM/50 ML BAG ONE (08:06)
[2019-12-09] MEDS ORDERED: fentaNYL* 50 MCG/ML 2 ML VIAL (100 MCG VIAL) ONE (09:22)
[2019-12-09] MEDS ORDERED: Ketorolac INJ* 30 MG/ML 1 ML VIAL ONE (09:30)
[2019-12-09] MEDS ORDERED: Nalbuphine* 10 MG/ML 1 ML VIAL IV PRN (09:36)
[2019-12-09] MEDS ORDERED: Scopolamine 1.5 mg* PATCH TRANSDERM PRN (09:36)
[2019-12-09] MEDS ORDERED: DiMENhydriNATE IV* 50 MG/ML VIAL IV PUSH PRN (09:36)
[2019-12-09] MEDS ORDERED: oxyCODONE/Acetamin 5/325 MG* TAB PO PRN (09:36)
[2019-12-09] MEDS ORDERED: diPHENhydraMINE IV* 50 MG/ML 1 ml VIAL (BENADRYL) IV PRN (09:36)
--- NOTE | 2019-12-09 11:43 | OP ---
OPERATIVE REPORT: DATE OF OPERATION: 12/09/19 [facility] : 83 SURGEON: Dr. Linda Ceron. INFORMATION ASSURANCE MANAGER: Dr. Aldo Hooks. ANESTHESIOLOGIST: Dr. Howard. ANESTHESIA: Spinal PRE-OP DIAGNOSIS: Desires repeat section, intrauterine 39 weeks, declines tubal ligation. POST-OP DIAGNOSIS: Desires repeat section, intrauterine 39 weeks, declines tubal ligation, delivered. OPERATIVE PROCEDURE: Repeat low-transverse section. ESTIMATED BLOOD LOSS: 600 cc. URINE OUTPUT: 1200 cc of clear yellow urine. FLUIDS: 2500 cc of crystalloid. FINDINGS: Revealed a vertex female , body cord x1, no nuchal cord. Apgars were 9 at 1 minute and 9 at 5 minutes. Weight was 7 pounds 0 ounces. Normal appearing tubes and ovaries bilaterally. Normal appearing placenta, 3- vessel cord, manually extracted, intact. COMPLICATIONS: None apparent. DISPOSITION: Stable to recovery room. DESCRIPTION OF PROCEDURE: The patient was placed in dorsal supine position. The abdomen was prepped and draped in a sterile standard fashion. Anesthesia was tested to appropriate level. Anesthesia confirmed an inadequate level. A repeat spinal was then performed and repeat prep and draping of the abdomen was then performed. A second test of the incisional site revealed excellent spinal anesthesia. The patient was identified with universal protocol for correct procedure, position, and patient. Incision was made through prior incision. This was carried down through to the fascia. The fascia was scored in the midline and extended laterally and superiorly using Waters scissors. Fascia was superiorly and inferiorly with blunt and sharp dissection. The peritoneum was entered bluntly. Peritoneal incision was extended bluntly. Bladder blade was inserted. Lower uterine segment was identified, tented up with an Allis, incision was made, carried down through to the membranes. Clear fluid was noted. Incision was extended laterally and superiorly using bandage scissors. was delivered vertex, body cord reduced, anterior and posterior shoulder were free of the cord. The baby was vigorous, crying at the field and the cord was allowed to pulse for a minute. Cord was then milked, clamped, and cut. Baby was handed off to waiting sheet folder. Appropriate cord blood was then obtained. Placenta was then manually extracted. Noted to be intact and 3-vessel cord. Uterus was exteriorized, wiped clean. The incision was clamped with broad Allis. Incision was reapproximated first layer running locked 0 Vicryl. The patient was experiencing back pain with the uterus exteriorized. So, the uterus was returned intraabdominally and the second layer of uterus was closed using 0 Vicryl imbricated. Prior to replacing the uterus intraabdominally, the tubes and ovaries were noted to have a normal appearance, and please note that upon removal of the placenta, uterine cavity was explored and noted to be free of any membranes or placental tissue. Hemostasis was assured at the hysterotomy site. Peritoneum was then reapproximated using 3-0 Vicryl in a running fashion. Subfascial area was visualized. Hemostasis was assured and the fascia itself was reapproximated using 0 Vicryl x2 in a running fashion. A subcuticular Camper fascia stitch was placed using 3-0 Vicryl in an interrupted fashion. The skin was then reapproximated using 4-0 Monocryl in a subcuticular fashion. Mastisol and Steris were applied. All sponge, instrument, blade counts were correct at the end of the case. The patient tolerated the procedure well and went to recovery room in stable condition. [id number]/[facility] #: [id number] [facility]ENTERChris
[2019-12-09] MEDS ORDERED: Lactated Ringers 1000 ML Bag* 1,000 ML IV SCH ×2 (12:00→15:00)
[2019-12-09] MEDS: oxyCODONE/Acetamin 5/325 MG* TAB PO PRN ×3 (13:12→21:46)
[2019-12-09] MEDS ORDERED: Glycerin ADULT SUPP PR PRN (14:15)
[2019-12-09] MEDS ORDERED: Dibucaine 1% 28.35 GM TUBE PR PRN (14:15)
[2019-12-09] MEDS ORDERED: Witch Hazel PAD* JAR TOPICAL PRN (14:15)
[2019-12-09] MEDS ORDERED: Oxytocin in LR* 20 UNITS/1,000 ML BAG IVPB SCH (15:00)
[2019-12-09 15:18] LABS: Urine Benzodiazepine Screen None Detected (None Detect); Urine Opiates Screen None Detected (None Detect)
[2019-12-09] MEDS: Ketorolac INJ* 30 MG/ML 1 ML VIAL IV PRN ×2 (15:23→21:46)
[2019-12-09] MEDS: Simethicone TAB* 80 MG TAB.CHEW PO SCH ×2 (17:57→20:43)
[2019-12-09] MEDS: Docusate CAP* 100 MG PO SCH (20:43)
[2019-12-10] MEDS ORDERED: oxyCODONE TAB* 5 MG TAB PO PRN
[2019-12-10] MEDS: oxyCODONE TAB* 5 MG TAB PO PRN ×2 (02:13→15:45)
[2019-12-10] MEDS: Ketorolac INJ* 30 MG/ML 1 ML VIAL IV PRN (04:33)
[2019-12-10] MEDS ORDERED: Sodium Citrate/Citric Acid* 15 ML UDC PO ONE (06:00)
[2019-12-10 06:46] LABS: ABS Eosinophils 0.1 10^3/ul (0-0.6); ABS Lymphocytes 1.3 10^3/ul (1.0-4.8); ABS Monocytes 0.6 10^3/ul (0-0.8); ABS Neutrophils 6.5 10^3/ul (1.5-7.7); Hematocrit 32 % (35-47); Hemoglobin 10.9 g/dL (12.0-16.0); Lymphocyte % 15.1 %; Mean Corpuscular HGB Conc 34 g/dL (31-36); Mean Corpuscular Hemoglobin 29 pg (27-31); Mean Corpuscular Volume 87 fL (80-97); Mean Platelet Volume 9.3 fL (7.4-10.4); Platelet Count 147 10^3/uL (150-450); Red Blood Count 3.71 10^6 /uL (3.70-4.87); Red Cell Distribution Width 15 % (10-15); White Blood Count 8.5 10^3/uL (3.5-10.8)
[2019-12-10] MEDS ORDERED: Ferrous Gluconate TAB* 324 MG TAB PO SCH (09:00)
[2019-12-10] MEDS: Docusate CAP* 100 MG PO SCH ×3 (09:22→21:17)
[2019-12-10] MEDS: Simethicone TAB* 80 MG TAB.CHEW PO SCH ×4 (09:22→21:17)
[2019-12-10] MEDS: Acetaminophen TAB* 325 MG PO PRN ×2 (09:23→14:39)
[2019-12-10] MEDS: Ibuprofen TAB* 600 MG PO PRN ×2 (12:23→18:37)
[2019-12-11] MEDS: oxyCODONE TAB* 5 MG TAB PO PRN ×3 (00:27→17:08)
[2019-12-11] MEDS: Ibuprofen TAB* 600 MG PO PRN ×3 (00:27→13:36)
[2019-12-11 08:04] VITALS: BP 107/54
[2019-12-11] MEDS: Simethicone TAB* 80 MG TAB.CHEW PO SCH ×2 (09:17→13:36)
[2019-12-11] MEDS: Docusate CAP* 100 MG PO SCH ×2 (09:17→13:36)
[2019-12-12] MEDS ORDERED: Scopolamine PATCH Remove* 1 NOTE MISC PATCH OFF PRN (09:41)
== END 2019-12-11 17:06 | disposition home or self-care (01) | DRG 540 ==
LOC: MCHOB 06:34
PROVIDERS: ADMIT Obstetrics & Gynecology; ATTEND Obstetrics & Gynecology
PROC: 10D00Z1 Extraction of Products of Conception, Low, Open Approach (ICD-10-PCS; principal; 2019-12-09 07:45)
DX: O34.211 Maternal care for low transverse scar from previous cesarean delivery (principal); O24.420 Gestational diabetes mellitus in childbirth, diet controlled; O99.824 Streptococcus B carrier state complicating childbirth; O69.81X0 Labor and delivery complicated by cord around neck, without compression, not applicable or unspecified; Z3A.39 39 weeks gestation of pregnancy; Z37.0 Single live birth
CPT/HCPCS: 36415; 80307; 85025; A9270-GY; G0480; J0694; J1885; J2590; J3010

== ENCOUNTER 2022-04-24 01:29 | Inpatient (IN) ==
[2022-04-24] MEDS ORDERED: Buffered Lidocaine 1% SYRIN 1 ml INTRADERM ONE (02:43)
[2022-04-24] MEDS ORDERED: Lactated Ringers 1000 ml BAG 1,000 ML IV ONE (02:43)
[2022-04-24 03:01] LABS: ABS Eosinophils 0.1 10^3/ul (0-0.6); ABS Lymphocytes 1.8 10^3/ul (1.0-4.8); ABS Monocytes 0.6 10^3/ul (0-0.8); ABS Neutrophils 4.9 10^3/ul (1.5-7.7); Hematocrit 33 % (35-47); Hemoglobin 10.8 g/dL (12.0-16.0); Lymphocyte % 24.8 %; Mean Corpuscular HGB Conc 33 g/dL (31-36); Mean Corpuscular Hemoglobin 28 pg (27-31); Mean Corpuscular Volume 84 fL (80-97); Mean Platelet Volume 9.3 fL (7.4-10.4); Platelet Count 179 10^3/uL (150-450); Red Blood Count 3.88 10^6 /uL (3.70-4.87); Red Cell Distribution Width 15 % (10-15); White Blood Count 7.3 10^3/uL (3.5-10.8)
[2022-04-24] MEDS: Betamethasone 6 mg/ml 5 ml VIAL IM SCH (03:10)
[2022-04-24] MEDS: Ampicillin ADVAN 2 GM in NS 0.9% 100 ml BAG 100 ML IVPB SCH ×4 (03:39→21:13)
[2022-04-24 04:02] LABS: Urine Benzodiazepine Screen None Detected (None Detect); Urine Cannabinoids Screen None Detected (None Detect); Urine Opiates Screen None Detected (None Detect)
[2022-04-24] MEDS: Lactated Ringers 1000 ml BAG 1,000 ML IV SCH ×3 (04:22→21:13)
[2022-04-24 04:32] LABS: Urine Appearance Clear; Urine Bilirubin Negative (Negative); Urine Color Colorless; Urine Glucose Negative (Negative); Urine Ketones Trace (Negative)
[2022-04-24 04:33] LABS: Urine Blood Negative (Negative); Urine Nitrite Negative (Negative); Urine Protein Negative (Negative); Urine Urobilinogen 0.2 (Negative) (Negative); Urine pH 6.5 (5.0-9.0)
[2022-04-24] MEDS ORDERED: Dextrose 50% Syringe 50 ml 25 GM/50 ML SYRINGE IV PUSH PRN ×2 (09:44→13:01)
[2022-04-24 13:24] LABS: Chlamydia trachomatis NAA Negative (Negative); Neisseria gonorrhoeae (GC) NAA Negative (Negative)
[2022-04-24] MEDS: Insulin NPH 100 units/ml SUBCUT SCH (14:12)
[2022-04-24 15:12] LABS: HIV 4th Generation Nonreactive (Nonreactive)
[2022-04-25] MEDS: Betamethasone 6 mg/ml 5 ml VIAL IM SCH (03:30)
[2022-04-25] MEDS: Ampicillin ADVAN 2 GM in NS 0.9% 100 ml BAG 100 ML IVPB SCH ×4 (07:33→22:00)
[2022-04-25] MEDS: Insulin NPH 100 units/ml SUBCUT SCH (08:15)
[2022-04-25] MEDS: Lactated Ringers 1000 ml BAG 1,000 ML IV SCH ×2 (13:11→22:36)
[2022-04-25 23:27] LABS: ABS Lymphocytes 1.7 10^3/ul (1.0-4.8); ABS Monocytes 0.8 10^3/ul (0-0.8); ABS Neutrophils 8.8 10^3/ul (1.5-7.7); Hematocrit 32 % (35-47); Hemoglobin 10.3 g/dL (12.0-16.0); Lymphocyte % 15.1 %; Mean Corpuscular HGB Conc 33 g/dL (31-36); Mean Corpuscular Hemoglobin 28 pg (27-31); Mean Corpuscular Volume 85 fL (80-97); Mean Platelet Volume 9.6 fL (7.4-10.4); Platelet Count 198 10^3/uL (150-450); Red Blood Count 3.72 10^6 /uL (3.70-4.87); Red Cell Distribution Width 15 % (10-15); White Blood Count 11.3 10^3/uL (3.5-10.8)
[2022-04-26] MEDS: Ampicillin ADVAN 2 GM in NS 0.9% 100 ml BAG 100 ML IVPB SCH (04:14)
[2022-04-26] MEDS: Lactated Ringers 1000 ml BAG 1,000 ML IV SCH (07:29)
[2022-04-26] MEDS ORDERED: Sodium Citrate/Citric Acid LIQ 15 ML UDC ONE (07:35)
[2022-04-26] MEDS ORDERED: Morphine PF AMP (0.5MG/ML) 5 MG/10 ML AMP ONE (07:46)
[2022-04-26] MEDS ORDERED: fentaNYL 100 mcg/2 ml 50 MCG/ML VIAL ONE ×2 (07:46→10:06)
[2022-04-26] MEDS ORDERED: Phenylephrine 40 mcg/mL 10mL (400mcg) SYRINGE ONE (07:50)
[2022-04-26] MEDS ORDERED: Dexamethasone IV 4 MG/ML VIAL 1 ml VIAL ONE (07:51)
[2022-04-26] MEDS ORDERED: Ondansetron 4 mg VIAL 2 MG/ML 2 ml VIAL ONE ×2 (07:51→09:08)
[2022-04-26] MEDS ORDERED: Sodium Citrate/Citric Acid LIQ 15 ML UDC PO ONE (07:52)
[2022-04-26] MEDS ORDERED: ceFOXitin 2 GM IVPREMIX 2 GM/50 ML BAG IVPB ONE (08:16)
[2022-04-26] MEDS ORDERED: Oxytocin 10 UNITS/ML 1 ML VIAL ONE ×2 (09:39→10:19)
[2022-04-26] MEDS ORDERED: Acetaminophen IV 1 GM/100ML 1,000 MG/100 ML BAG IV ONE (09:41)
[2022-04-26] MEDS ORDERED: Bupivacaine 0.5% SDV PF 30ML VIAL ONE (10:09)
[2022-04-26] MEDS ORDERED: Naloxone 0.4 mg VIAL 0.4 mg/ml 1 ml VIAL IV PRN (10:23)
[2022-04-26] MEDS ORDERED: Scopolamine 1 mg/72hr PATCH TRANSDERM PRN (10:23)
[2022-04-26] MEDS ORDERED: oxyCODONE/Acetamin 5/325 mg TAB PO PRN (10:23)
[2022-04-26] MEDS ORDERED: Ondansetron 4 mg VIAL 2 MG/ML 2 ml VIAL IV PRN (10:23)
[2022-04-26] MEDS ORDERED: Witch Hazel PAD JAR TOPICAL PRN (14:54)
[2022-04-26] MEDS ORDERED: Glycerin ADULT 2.4 gm SUPP PR PRN (14:54)
[2022-04-26] MEDS ORDERED: Oxytocin in LR 20,000 MILLI.UNIT/1,000 ML BAG IV SCH (15:00)
[2022-04-26] MEDS ORDERED: Lactated Ringers 1000 ml BAG 1,000 ML IV SCH (15:00)
[2022-04-27 07:12] LABS: ABS Eosinophils 0.1 10^3/ul (0-0.6); ABS Lymphocytes 2.1 10^3/ul (1.0-4.8); ABS Monocytes 1.1 10^3/ul (0-0.8); ABS Neutrophils 7.9 10^3/ul (1.5-7.7); Eosinophil % 0.5 %; Hematocrit 31 % (35-47); Lymphocyte % 19.1 %; Mean Corpuscular HGB Conc 33 g/dL (31-36); Mean Corpuscular Hemoglobin 28 pg (27-31); Mean Corpuscular Volume 86 fL (80-97); Platelet Count 167 10^3/uL (150-450); Red Blood Count 3.58 10^6 /uL (3.70-4.87); Red Cell Distribution Width 15 % (10-15); White Blood Count 11.2 10^3/uL (3.5-10.8)
[2022-04-27 09:02] LABS: Urine Appearance Clear; Urine Bilirubin Negative (Negative); Urine Blood Trace (Intact) (Negative); Urine Color Yellow; Urine Glucose Negative (Negative); Urine Ketones 4+ (>=160mg/dL) (Negative); Urine Nitrite Negative (Negative); Urine Protein Negative (Negative); Urine Urobilinogen 0.2 (Negative) (Negative)
[2022-04-27 09:18] LABS: Urine Bacteria 1+ (Absent); Urine Red Blood Cell 1+(3-5/hpf) (Absent); Urine White Blood Cell Trace(0-5/hpf) (Absent)
[2022-04-30 08:08] VITALS: BP 109/61
== END 2022-04-30 17:38 | disposition home or self-care (01) | DRG 540 ==
LOC: MCHOBOUT 01:29 → MCHOB 02:12
PROVIDERS: ADMIT Obstetrics & Gynecology; ATTEND Obstetrics & Gynecology